=== PATIENT | male | born 1960 | race Caucasian/White ===

== ENCOUNTER 2020-11-04 09:35 | Emergency (ER) | payer MEDICARE, SELFPAY ==
[2020-11-04 09:43] VITALS: BP 151/86; PULSE 76; RESP 20; TEMP 36.9; O2SAT 99; BMI 35.7
[2020-11-04 09:50] VITALS: BP 120/97; PULSE 77; O2SAT 97
--- NOTE | 2020-11-04 09:52 | XRR_ITS ---
PROCEDURE INFORMATION: Exam: XR Right Ribs with PA Chest Exam date and time: 11/04/2020 9:52 AM Age: 60 years old Clinical indication: Other: Rib pain; Patient HX: PT fell in tub 5 days prior, swelling and discoloration in RT rib area; Additional info: Fall TECHNIQUE: Imaging protocol: XR Right ribs with PA chest. Views: 3 views COMPARISON: [facility] Chest 2 views 05/30/2018 10:22 AM FINDINGS: Lungs: Well expanded. No consolidation. Pleural spaces: Unremarkable. No pleural effusion. No pneumothorax. Heart/Mediastinum: Unremarkable. No cardiomegaly. Bones/joints: Unremarkable. No evidence of fracture. XR/XR ribs RT mn 3V w CXR1V [id number] IMPRESSION: No acute findings.
--- NOTE | 2020-11-04 10:03 | ED_ITS ---
HPI - Fall General: Chief Complaint: Fall Stated Complaint: Fall/Pain & Swelling in Rib Area Time Seen by Provider: 11/04/20 09:40 History of Present Illness: HPI Narrative: Patient complains about right sided rib pain in the lower aspect after a fall in his bathtub a couple nights ago. Pain is continued says it hurts to breathe. Denies any other problems presently MD complaint: fall Onset (ago): day(s) Fall from: standing Fall witnessed: no Place fall occurred: home Loss of consciousness: None Symptoms prior to fall: none Context: tripped/slipped Associated symptoms-after fall: Reports no associated symptoms; Denies abdominal pain, chest pain or headache(s) Review of Systems Const: Denies: fever(s), chills or body aches Eyes: Denies: change in vision or blurry vision ENMT: Denies: throat pain or nasal congestion Card: Denies: chest pain or dyspnea on exertion Resp: Denies: dyspnea, productive cough or non-productive cough GI: Denies: abdominal pain, nausea or vomiting : Denies: difficulty urinating Musc: Reports: other (Rib pain); Denies: extremity pain Skin/Breast: Denies: rash Neuro: Denies: headache(s) Psych: Denies: anxiety or depression Lui/Lymph: Denies: easy bruising Physical Exam Const: COMMON NORMALS: no acute distress, average body habitus and patient oriented x3 HENMT: COMMON NORMALS: normocephalic HEAD & SCALP: normal to inspection and normocephalic FACE & SINUS: normal facial exam Eye: COMMON NORMALS: conjunctivae normal GENERAL EYE: appearance normal, both eyes and all related structures CONJUNCTIVA: Yes conjunctivae normal Neck/C-Spine: COMMON NORMALS: no JVD Chest: CHEST: Yes localized rib tenderness with anteroposterior compression (No bruising mild swelling) Location: 9th rib, 10th rib and 11th rib Resp: COMMON NORMALS: normal respiratory effort and clear to auscultation bilaterally AUSCULTATION: clear to auscultation bilaterally Cardio: COMMON NORMALS: no JVD, regular rate and regular rhythm RATE: regular rate RHYTHM: regular rhythm GI: COMMON NORMALS: Normal to inspection, nondistended, normoactive bowel sounds present Extremity: COMMON NORMALS: normal to inspection and full ROM Neuro: COMMON NORMALS: patient oriented x3 Course Vital Signs: Vital signs: Vital Signs Temperature 98.5 F 11/04/20 09:43 Pulse Rate 74 11/04/20 11:48 Respiratory Rate 18 11/04/20 11:09 Blood Pressure 126/62 11/04/20 11:48 Pulse Oximetry 99 11/04/20 11:48 MDM - Fall MDM Narrative: Medical decision making narrative: With a fall few days ago complained about rib pain. X-rays were negative for any problems found on imaging studies. Patient's UA did show UTI with hematuria. Patient placed on appropriate antibiotics will follow primary care for repeat sample. Lab Data: Labs: Lab Results 11/04/20 Range/Units 11:01 Urine Color Straw (Yellow) Urine Appearance Cloudy (CLEAR) Urine pH 6 (5-7) Ur Specific Gravit y 1.010 (1.005-1.030) Urine Protein Neg (Negative) Urine Glucose (UA) Norm (Normal) Urine Ketones Negative (Negative) Urine Blood 2+ H (Negative) Urine Nitrate Positive H (Negative) Urine Bilirubin Neg (Negative) Urine Urobilinogen Norm (Negative) mg/dL Ur Leukocyte Marisa ase 2+ H (Negative) Urine RBC 5-10 H (0-2) /hpf Urine WBC 40-55 H (0-5) /hpf Ur Squamous Epith Cells Rare (0-5) /hpf Amorphous Sediment Not Reportable Urine Bacteria 2+ H (NONE) /hpf Discharge Plan Discharge Patient Disposition: Home Clinical Impression: Acute UTI Contusion of rib on right side Qualifiers: Encounter type: initial encounter Qualified Code(s): S20.211A - Contusion of right front wall of thorax, initial encounter Condition: Stable Prescriptions: New tramadol 50 mg tablet 50 mg PO TID PRN (Reason: pain) Qty: 7 RF: 0 cephalexin 500 mg capsule 500 mg PO Q8H 7 Days Qty: 21 RF: 0 Discharge Orders: Discharge ED (Routine); Ordered 11/04/20 Ordered By: Paresh Armstrong Discharge Diet: Usual diet Discharge Activity: Increase activity as tolerated Patient Instructions: Urinary Tract Infection in Men (ED), Opioid Safety Activity Restrictions/Additional Instructions: Follow-up with medical provider as directed. Take medications as prescribed. Return to the ER or your medical provider if condition worsens. Please read and understand discharge instructions. If any questions ask please. Follow-up your primary care provider in 1 week and repeat urine sample to make sure that infection is cleared up. Coding Level of Care Code ED Apparel Embroidery Digitizer for Chg Fwd Exam Comprehensive
[2020-11-04] MEDS: ketorolac 60 mg/2 mL INJ IM (10:24)
[2020-11-04] MEDS: HYDROcodone-acetaminophen 7.5-325 mg Tablet 1 TAB PO (10:24)
[2020-11-04 11:09] VITALS: BP 130/76; PULSE 67; RESP 18; O2SAT 98
[2020-11-04 11:15] LABS: Add Urine Microscopic? YES; Bilirubin Urine Neg (Negative); Blood Urine 2+ (Negative); Glucose Urine UA Norm (Normal); Ketones Urine Negative (Negative); Leukocyte Esterase Urine 2+ (Negative); Nitrate Urine Positive (Negative); Protein Urine Neg (Negative); Urine Appearance Cloudy (CLEAR); Urine Color Straw (Yellow); Urobilinogen Urine Norm (Negative); pH Urine 6 (5-7)
[2020-11-04 11:17] LABS: WBC Urine 40-55 /hpf (0-5)
[2020-11-04 11:18] LABS: Add Urine Culture? Yes; Bacteria Urine 2+ /hpf; Squamous Epithelial Cell Urine RARE /hpf (0-5)
[2020-11-04] MEDS: cephALEXin 500 mg Capsule PO (11:41)
[2020-11-04 11:48] VITALS: BP 126/62; PULSE 74; O2SAT 99
== END 2020-11-04 11:50 | disposition home or self-care (01) ==
PROVIDERS: Emergency Provider Nurse Practitioner Family
DX: N39.0 Urinary tract infection, site not specified (principal); S20.211A Contusion of right front wall of thorax, initial encounter; W18.2XXA Fall in (into) shower or empty bathtub, initial encounter
CPT/HCPCS: 71101; 81001; 87077; 87086; 87186; 96372; 99283; J1885

== ENCOUNTER → 2021-02-19 13:21 | Outpatient (BNVA) | payer MEDICARE, SELFPAY | PROVIDERS: Visit Provider Psychiatry & Neurology Psychiatry | DX: F33.2 Major depressive disorder, recurrent severe without psychotic features (principal); F41.1 Generalized anxiety disorder; F43.12 Post-traumatic stress disorder, chronic | CPT/HCPCS: 99204 ==

== ENCOUNTER → 2021-02-25 13:02 | Outpatient (BNVA) | payer MEDICARE, SELFPAY | PROVIDERS: PCP Family Medicine; Referring Provider Family Medicine; Visit Provider Specialist | DX: G62.89 Other specified polyneuropathies (principal); G56.03 Carpal tunnel syndrome, bilateral upper limbs | CPT/HCPCS: 95913 ==

== ENCOUNTER → 2021-06-16 12:25 | Outpatient (BNVA) | payer MEDICARE, SELFPAY | PROVIDERS: PCP Family Medicine; Visit Provider Psychiatry & Neurology Psychiatry | DX: F43.12 Post-traumatic stress disorder, chronic (principal); F41.1 Generalized anxiety disorder; F33.2 Major depressive disorder, recurrent severe without psychotic features | CPT/HCPCS: 99213 ==

== ENCOUNTER → 2021-09-12 12:15 | Outpatient (BNVA) | payer MEDICARE, SELFPAY | PROVIDERS: PCP Family Medicine; Visit Provider Psychiatry & Neurology Psychiatry | DX: F43.12 Post-traumatic stress disorder, chronic (principal); F41.1 Generalized anxiety disorder; F33.2 Major depressive disorder, recurrent severe without psychotic features | CPT/HCPCS: 99213 ==

== ENCOUNTER 2021-11-04 14:10 | Inpatient (IN) | payer MEDICARE, SELFPAY ==
[2021-11-04 14:22] VITALS: BP 117/66; PULSE 55; RESP 20; TEMP 36.8; O2SAT 99; BMI 34.2
--- NOTE | 2021-11-04 15:47 | ED_ITS ---
HPI - Abdominal Pain General: Chief Complaint: Abdominal Pain Stated Complaint: lower abd pain Time Seen by Provider: 11/04/21 15:28 Source: patient Mode of arrival: ambulatory Limitations: no limitations History of Present Illness: 61-year-old male presents to the emergency room with left testicular and lower abdominal pain. It began 4 to 5 days ago has progressively worsened. He has not had any dysuria urgency or frequency or hematuria denies any diarrhea or hematochezia no fever sweats or chills. Denies any flank pain. MD elicited complaint: abdominal pain Onset (ago): day(s) Location: Suprapubic Severity: moderate Quality: aching Radiation: other (L testicle) Exacerbating factors: nothing Relieving factors: nothing Associated Symptoms: Denies anorexia, belching, bloating, change in bowel habits, change in stool character, chills, coffee ground emesis, constipation, GI cramping, diarrhea, dyspepsia, dysuria, excessive flatus, fever(s), heartburn, hematochezia, hematuria, hematemesis, fecal incontinence, loose stools, melena, nausea, poor appetite, syncope and vomiting Review of Systems Const: Denies: fever(s) or chills ENMT: Denies: throat pain, ear or mastoid pain, nasal discharge or nasal congestion Card: Denies: chest pain or syncope Resp: Denies: dyspnea, productive cough or non-productive cough GI: Reports: abdominal pain; Denies: nausea, vomiting, hematemesis, coffee ground emesis, heartburn, diarrhea, constipation, bloating, GI cramping, belching, excessive flatus, fecal incontinence, change in bowel habits, change in stool character, hematochezia or melena : Reports: testicular pain; Denies: flank pain, difficulty urinating, dysuria, urinary frequency or hematuria Skin/Breast: Denies: rash or pruritus PFSH ED PFSH: Medical History Diabetes Hypertension Major depressive disorder, recurrent, in partial remission Psychiatric care Surgical History History of ear, nose, and throat (ENT) surgery Mucocele Family History Other Cancer Social History Smoking and tobacco status: never smoked Second hand smoke exposure: No Physical Exam Const: COMMON NORMALS: no acute distress GENERAL APPEARANCE: cooperative and comfortable ORIENTATION/CONSCIOUSNESS: Yes awake, Yes oriented to person, Yes oriented to place and Yes oriented to time HENMT: COMMON NORMALS: normocephalic, atraumatic, hearing grossly normal bilaterally, external ears normal, EAC's normal, TM's normal bilaterally, Normal nasal mucous membranes and turbinates present, moist oral mucous membranes and oropharynx normal HEAD & SCALP: normocephalic and atraumatic NOSE: Normal nasal mucous membranes and turbinates present EXTERNAL EAR: Yes external ears normal EXTERNAL AUDITORY CANAL: EAC's normal TYMPANIC MEMBRANE: TM's normal bilaterally Resp: COMMON NORMALS: normal respiratory effort, No retractions, No use of accessory muscles and clear to auscultation bilaterally AUSCULTATION: clear to auscultation bilaterally Cardio: COMMON NORMALS: regular rate, regular rhythm and No murmurs present (Cardio) RATE: regular rate RHYTHM: regular rhythm GI: COMMON NORMALS: Soft to palpation and No hepatosplenomegaly present AUSCULTATION: Yes normoactive bowel sounds PALPATION: Yes Soft to palpation, No Tenderness to palpation present (GI), No Guarding due to palpation present (GI) and Yes No hepatosplenomegaly present : OTHER: Left testicular pain no masses no evidence of hernia in the inguinal canal Extremity: COMMON NORMALS: normal to inspection, capillary refill normal, no clubbing, cyanosis or edema, no calf tenderness and no pedal edema Neuro: SENSORIUM/ORIENTATION: Yes oriented to person, Yes oriented to place and Yes oriented to time Skin: COMMON NORMALS: no rashes or lesions noted GENERAL SKIN EXAM: no rashes or lesions noted Course Vital Signs: Vital signs: Vital Signs Temperature 98.6 F 11/06/21 15:27 Pulse Rate 94 11/06/21 15:27 Respiratory Rate 16 11/06/21 15:27 Blood Pressure 126/81 11/06/21 15:27 Pulse Oximetry 97 11/06/21 15:27 MDM - Abdominal Pain Medical Decision Making Labs and imaging reviewed discussed with patient he has a staghorn calculus with evidence of pyelonephritis will admit for IV antibiotics consult urology orders are written. Medical Records I reviewed the patient's medical records. Lab Data I reviewed the patient's lab results. : 11/06/21 05:59 11/06/21 05:59 Labs/Radiology: Radiology Impressions Scrotum Ultrasound 11/04/21 16:00 IMPRESSION: No acute findings. Abdomen/Pelvis CT 11/04/21 16:01 IMPRESSION: 1. Staghorn calculus nearly completely filling the left renal collecting system. No hydronephrosis or ureteral dilation. Peripelvic edema and urothelial thickening may represent pyelitis or early xanthogranulomatous pyelonephritis. 2. Incidental findings above. Laboratory Results WBC 10.3 10^3/uL (4.0-10.0) H 11/04/21 15:45 RBC 4.43 10^6/uL (4.1-5.3) 11/04/21 15:45 Hgb 13.6 g/dL (11.7-16.6) 11/04/21 15:45 Hct 41.5 % (42.0-52.0) L 11/04/21 15:45 MCV 93.7 fl (80-94) 11/04/21 15:45 MCH 30.7 pg (28.0-34.0) 11/04/21 15:45 MCHC 32.8 g/dL (30.0-36.0) 11/04/21 15:45 RDW 18.9 % (12.1-15.1) H 11/04/21 15:45 Plt Count 276 10^3/cmm (130-400) 11/04/21 15:45 MPV 9.5 fL (7.4-10.4) 11/04/21 15:45 Neut % (Auto) 47.6 % 11/04/21 15:45 Lymph % (Auto) 42.6 % 11/04/21 15:45 [place] % (Auto) 6.2 % 11/04/21 15:45 Eos % (Auto) 2.4 % 11/04/21 15:45 Baso % (Auto) 0.8 % 11/04/21 15:45 Neut # (Auto) 4.88 10^3/uL (1.8-7.7) 11/04/21 15:45 Lymph # (Auto) 4.4 10^3/uL (0.8-4.8) 11/04/21 15:45 [place] # (Auto) 0.6 10^3/uL (0.2-0.9) 11/04/21 15:45 Eos # (Auto) 0.3 10^3/uL (0.0-0.8) 11/04/21 15:45 Baso # (Auto) 0.1 10^3/uL (0.0-0.1) 11/04/21 15:45 Nucleated RBC % (auto) 0 % 11/04/21 15:45 Nucleated RBCs # 0.0 /100WBC 11/04/21 15:45 Sodium 139 mmol/L (136-145) 11/04/21 16:40 Potassium 4.1 mmol/L (3.5-5.1) 11/04/21 16:40 Chloride 105 mmol/L (98-107) 11/04/21 16:40 Carbon Dioxide 21 mmol/L (22-29) L 11/04/21 16:40 Anion Gap 17.1 (5-19) 11/04/21 16:40 BUN 20 mg/dL (8-23) 11/04/21 16:40 Creatinine 1.1 mg/dL (0.7-1.2) 11/04/21 16:40 GFR Calculation 68.3 mL/min (90-130) L 11/04/21 16:40 Glucose 132 mg/dL (65-115) H 11/04/21 16:40 Estimat Average Glucose 154 11/04/21 15:45 Hemoglobin A1c 7.0 % (4.0-6.0) H 11/04/21 15:45 Calculated Osmolality 292 mOsm/kg (285-295) 11/04/21 16:40 Calcium 8.5 mg/dL (8.5-10.5) 11/04/21 16:40 Total Bilirubin 0.2 mg/dL (0.15-1.2) 11/04/21 16:40 AST 15 U/L (0-40) 11/04/21 16:40 ALT 16 U/L (0-41) 11/04/21 16:40 Alkaline Phosphatase 72 IU/L (40-130) 11/04/21 16:40 Total Protein 6.8 g/dL (6.6-8.7) 11/04/21 16:40 Albumin 4.0 g/dL (3.5-5.2) 11/04/21 16:40 Globulin 2.8 g/dL (1.3-4.6) 11/04/21 16:40 Lipase 38 U/L (13-60) 11/04/21 16:40 Prostate Specific Ag 0.567 ng/mL (0-4) 11/04/21 16:40 Procalcitonin 0.11 ng/mL (0-0.5) 11/04/21 16:40 Urine Color Yellow (Yellow) 11/04/21 15:45 Urine Appearance Hazy (CLEAR) A 11/04/21 15:45 Urine pH 6 (5-7) 11/04/21 15:45 Ur Specific [place] 1.010 (1.005-1.030) 11/04/21 15:45 Urine Protein Neg (Negative) 11/04/21 15:45 Urine Glucose (UA) 4+ (Normal) H 11/04/21 15:45 Urine Ketones Negative (Negative) 11/04/21 15:45 Urine Blood 3+ (Negative) H 11/04/21 15:45 Urine Nitrate Negative (Negative) 11/04/21 15:45 Urine Bilirubin Neg (Negative) 11/04/21 15:45 Urine Urobilinogen Norm mg/dL (Negative) 11/04/21 15:45 Ur Leukocyte Esterase 2+ (Negative) H 11/04/21 15:45 Urine RBC 10-15 /hpf (0-2) H 11/04/21 15:45 Urine WBC >100 /hpf (0-5) H 11/04/21 15:45 Ur Squamous Epith Cells 0-4 /hpf (0-5) H 11/04/21 15:45 Amorphous Sediment Not Reportable 11/04/21 15:45 Urine Bacteria 1+ /hpf (NONE) H 11/04/21 15:45 Discharge Plan Discharge Patient Disposition: Admitted As Inpatient Admit Provider: Gayle Reyes Clinical Impression: Pyelonephritis, Staghorn calculus, Generalized anxiety disorder Condition: Stable Coding Level of Care Code ED Traveling Auditor for Chg Fwd Exam Detailed
[2021-11-04 15:53] LABS: Basophils # 0.1 10^3/uL (0.0-0.1); Basophils % 0.8 %; Eosinophils # 0.3 10^3/uL (0.0-0.8); Eosinophils % 2.4 %; Hematocrit 41.5 % (42.0-52.0); Hemoglobin 13.6 g/dL (11.7-16.6); Lymphocytes # 4.4 10^3/uL (0.8-4.8); Lymphocytes % 42.6 %; Mean Corpuscular HGB Conc 32.8 g/dL (30.0-36.0); Mean Corpuscular Hemoglobin 30.7 pg (28.0-34.0); Mean Corpuscular Volume 93.7 fl (80-94); Mean Platelet Volume 9.5 fL (7.4-10.4); Monocytes # 0.6 10^3/uL (0.2-0.9); Monocytes % 6.2 %; Neutrophils # 4.88 10^3/uL (1.8-7.7); Neutrophils % 47.6 %; Nucleated Red Blood Cells % 0 %; Platelet Count 276 10^3/cmm (130-400); Red Blood Count 4.43 10^6/uL (4.1-5.3); Red Cell Distribution Width 18.9 % (12.1-15.1); White Blood Count 10.3 10^3/uL (4.0-10.0)
--- NOTE | 2021-11-04 16:00 | USR_ITS ---
PROCEDURE INFORMATION: Exam: US Scrotum and Artery or Vein of the Abdominal and/or Reproductive Organs, Limited Scrotum Exam date and time: 11/04/2021 4:20 PM Age: 61 years old Clinical indication: Groin pain and scrotum pain; Additional info: L testicle pain TECHNIQUE: Imaging protocol: Real-time ultrasound of the scrotum. Real-time duplex ultrasound scan of the arterial or venous flow with chamberlain scale, color Doppler flow and spectral waveform analysis with image documentation. Limited Duplex exam focused of the scrotum. Duplex images required to evaluate for torsion and other vascular conditions. COMPARISON: No relevant prior studies available. FINDINGS: Right testicle: Right testicular contour and parenchymal echotexture is normal. There is no mass. There is normal blood flow in the right testicle. The right testicle measures 4.3 x 2.6 x 2.4 cm. Left testicle: Left testicular contour and parenchymal echotexture is normal. There is no mass. There is normal blood flow in the left testicle. The left testicle measures 3.9 x 2.5 x 2.3 cm. Epididymides: Normal right epididymis. Left epididymis contains a 4 mm simple cyst. No sign of inflammation. Scrotum: Trace right hydrocele US/US scrotum [id number] IMPRESSION: No acute findings.
--- NOTE | 2021-11-04 16:01 | CTR_ITS ---
PROCEDURE INFORMATION: Exam: CT Abdomen And Pelvis Without Contrast Exam date and time: 11/04/2021 4:56 PM Age: 61 years old Clinical indication: Other: Left scrotal pain and flank pain; Additional info: Abdominal pain TECHNIQUE: Imaging protocol: Computed tomography of the abdomen and pelvis without contrast. Radiation optimization: All CT scans at this facility use at least one of these dose optimization techniques: automated exposure control; mA and/or kV adjustment per patient size (includes targeted exams where dose is matched to clinical indication); or iterative reconstruction. COMPARISON: US scrotum [id number] 11/04/2021 4:20 PM RADIATION DOSE METRICS: Total DLP (mGy-cm): 1501.63 FINDINGS: Lungs: Lung bases are clear. Liver: Simple liver cysts are present. There is diffuse low-attenuation of the liver relative to the spleen consistent with fatty infiltration. Gallbladder and bile ducts: The gallbladder is decompressed, preventing meaningful evaluation of wall thickness. Pancreas: The pancreas is unremarkable. Spleen: The spleen is unremarkable. Adrenal glands: The adrenal glands are unremarkable. Kidneys and ureters: Staghorn calculus in the left kidney measuring 5.2 x 2.9 x 1.9 cm. The stone fills the calices and renal pelvis. There is infiltration of the fat adjacent to the renal pelvis. There is thickening of distal renal pelvic urothelium. The ureter is nondilated. There is subtle asymmetric left perinephric edema. The right kidney and ureter are unremarkable. Stomach and bowel: The stomach is unremarkable. The small bowel is nondilated. The colon is unremarkable. Appendix: The appendix is normal. Intraperitoneal space: There is no free air or significant intraperitoneal free fluid. Vasculature: There is moderate aortic atherosclerotic disease. Lymph nodes: There is no lymphadenopathy in the retroperitoneum, mesentery, pelvis or inguinal regions. Urinary bladder: The urinary bladder is unremarkable. Reproductive: The prostate and seminal vesicles are unremarkable. Bones/joints: There is mild degenerative disease in the lumbar spine. The pelvis and hips are unremarkable. Soft tissues: There is a small fat containing umbilical hernia. CT/CT abdomen pelvis wo con [id number] IMPRESSION: 1. Staghorn calculus nearly completely filling the left renal collecting system. No hydronephrosis or ureteral dilation. Peripelvic edema and urothelial thickening may represent pyelitis or early xanthogranulomatous pyelonephritis. 2. Incidental findings above.
[2021-11-04 16:05] LABS: Blood Urine 3+ (Negative); Glucose Urine UA 4+ (Normal); Ketones Urine Negative (Negative); Protein Urine Neg (Negative); Urine Appearance Hazy (CLEAR); Urine Color Yellow (Yellow); pH Urine 6 (5-7)
[2021-11-04 16:06] LABS: Add Urine Culture? Yes; Add Urine Microscopic? YES; Bacteria Urine 1+ /hpf; Bilirubin Urine Neg (Negative); Leukocyte Esterase Urine 2+ (Negative); Nitrate Urine Negative (Negative); Squamous Epithelial Cell Urine 0-4 /hpf (0-5); Urobilinogen Urine Norm (Negative); WBC Urine >100 /hpf (0-5)
[2021-11-04] MEDS: cefTRIAXone 1,000 MG in sodium chloride 0.9% (plus) 50 ML 100 MG IV (16:41)
[2021-11-04 17:18] VITALS: BP 127/64; PULSE 74; RESP 18; O2SAT 98
[2021-11-04 17:24] LABS: Alanine Aminotransferase 16 U/L (0-41); Alkaline Phosphatase 72 IU/L (40-130); Aspartate Amino Transferase 15 U/L (0-40); Blood Urea Nitrogen 20 mg/dL (8-23); Calcium 8.5 mg/dL (8.5-10.5); Carbon Dioxide 21 mmol/L (22-29); Chloride 105 mmol/L (98-107); Globulin 2.8 g/dL (1.3-4.6); Glomerular Filtration Rate 68.3 mL/min (90-130); Glucose 132 mg/dL (65-115); Lipase 38 U/L (13-60); Osmolality Calculated 292 mOsm/kg (285-295); Sodium 139 mmol/L (136-145); Total Bilirubin 0.2 mg/dL (0.15-1.2); Total Protein 6.8 g/dL (6.6-8.7)
[2021-11-04 17:25] LABS: Anion Gap 17.1 (5-19); Potassium 4.1 mmol/L (3.5-5.1)
--- NOTE | 2021-11-04 18:13 | PM.HP ---
Providers/Chief Complaint Primary Care Provider: Luican Ng MD Chief Complaint: lower abd pain History of Present Illness Catracho Dawson is a 61 year old male who carries history of diabetes and hypertension who presented today with chief complaint of scrotal pain. Patient is stating that around COVID pandemic he was experiencing similar complaint which she is describing as abdominal discomfort, he stating that he toughed it out did not seek medical help however 4 days ago he started experiencing left scrotal pain and today it got worse he decided to come to the hospital for further evaluation, he has not noticed any chest pain, shortness of breath, fever, nausea or vomiting. He has not noticed any changes in his urinary stream. 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 In the ER he has been diagnosed with pyelonephritis, staghorn calculi without hydronephrosis, he is not septic at this point, he is n.p.o., Dr. Fierro is coming to see him, he will be kept n.p.o. until urology evaluation Afebrile He has been given antibiotics, mild leukocytosis Creatinine is normal Patient is stating that he is up-to-date with his colonoscopies, they were unremarkable, he does endorse that his PSA level was within normal range however he has been noticing nocturia, he does wake up 2-3 times at night Review of Systems Const: Denies: fever(s) or chills Eyes: Denies: change in vision ENMT: Denies: throat pain Card: Denies: chest pain Resp: Denies: dyspnea GI: Reports: abdominal pain and nausea : Denies: flank pain Musc: Denies: neck pain Skin/Breast: Denies: rash Neuro: Denies: headache(s) Psych: Denies: anxiety Endo: Denies: polyuria Lui/Lymph: Denies: easy bruising All/Imm: Denies: urticaria Medications/Allergies Home Medications Medication Instructions Recorded Confirmed Last Taken Type levothyroxine 50 mcg capsule 50 mcg PO DAILY 01/23/21 09/12/21 Unknown History lisinopril 30 mg tablet 30 mg PO DAILY 01/23/21 09/12/21 Unknown History rosuvastatin 5 mg tablet 5 mg PO DAILY 01/23/21 09/12/21 Unknown History metformin 500 mg tablet 500 mg PO BID tab 02/19/21 09/12/21 Unknown History empagliflozin 25 mg tablet 25 mg PO DAILY 06/16/21 09/12/21 Unknown History (Jardiance) buspirone 5 mg tablet 5 mg PO TID #90 tab 09/12/21 09/12/21 Unknown Rx venlafaxine 150 mg tablet,extended 150 mg PO DAILY #30 tab 09/12/21 09/12/21 Unknown Rx release 24 hr venlafaxine 75 mg capsule,extended 75 mg PO DAILY #30 cap 09/12/21 09/12/21 Unknown Rx release 24 hr (Effexor XR) Allergies Allergy/AdvReac Type Severity Reaction Status Date / Time shellfish derived Allergy ALGY-Anaphy Verified 09/12/21 12:26 laxis PFSH Acute PFSH: Medical History Diabetes Hypertension Major depressive disorder, recurrent, in partial remission Psychiatric care Surgical History History of ear, nose, and throat (ENT) surgery Mucocele Family History Other Cancer Social History Smoking and tobacco status: never smoked Second hand smoke exposure: No Vitals/I&O/Wt Last Vital Signs Temp 98.2 F 11/04/21 14:22 Pulse 74 11/04/21 17:18 Resp 18 11/04/21 17:18 BP 127/64 11/04/21 17:18 Pulse Ox 98 11/04/21 17:18 11/04/21 11/04/21 11/04/21 06:59 14:59 22:59 Intake Total 50 / 50 Balance 50 / 50 Weight last 48 hrs Weight 102.058 kg Physical Exam Narrative: Pleasant cooperative male Currently not in any active distress Currently on room air Saturating well Abdomen soft No CVA tenderness No signs of edema Looks euvolemic Nonfocal neuro exam Awake and alert Pleasant and cooperative Data : 11/04/21 15:45 11/04/21 16:40 A&P Assessment and plan (1) Staghorn calculus: Status: Acute (2) Pyelonephritis: Status: Acute Plan Staghorn calculi, pyelonephritis No signs of sepsis Afebrile Mild leukocytosis N.p.o. after Dr. Fierro's evaluation Start Zosyn IV fluid hydration Check A1c level Scrotal ultrasound unremarkable No signs of Angel's gangrene Hypothyroidism: Patient takes levothyroxine 50 mcg at home For his hypertension he takes lisinopril which I am holding for now Hold metformin Full code N.p.o. until Dr. Fierro's evaluation DVT prophylaxis: SCDs in anticipation of urological intervention Attestations Medical Necessity Statement*: More than 2 midnights anticipated Time Spent in Patient Care: 40 Coding Level of Care Code Acute Soft Sugar Operator Head for Chg Fwd Diagnoses Staghorn calculus N20.0 Pyelonephritis N12
[2021-11-04 18:24] VITALS: BP 111/64; PULSE 80; RESP 18; O2SAT 100
[2021-11-04 18:50] VITALS: RESP 18; O2SAT 96
[2021-11-04] MEDS: HYDROmorphone 1 mg/mL INJ 1 mL 0.4 MG IVP ×2 (18:50→22:31)
[2021-11-04 19:58] LABS: Procalcitonin 0.11 ng/mL (0-0.5); Prostate Specific Antigen 0.567 ng/mL (0-4)
[2021-11-04 19:59] VITALS: BP 116/56; PULSE 79; RESP 17; O2SAT 99
[2021-11-04 20:56] LABS: Estmated Average Glucose 154
[2021-11-04] MEDS: piperacillin-tazobactam 3.375 GM in sodium chloride 0.9% (plus) 50 ML IV (21:15)
[2021-11-04] MEDS: dextrose 5%-sod chloride 0.9% 1,000 ML 30 ML IV (22:22)
[2021-11-04 22:31] VITALS: RESP 14
[2021-11-05] VITALS (10 sets, daily range): BP systolic 120–148; BP diastolic 68–80; PULSE 62–82; RESP 14–18; TEMP 36.1–36.9; O2SAT 95–99
[2021-11-05] MEDS: piperacillin-tazobactam 3.375 GM in sodium chloride 0.9% (plus) 50 ML IV ×3 (03:24→21:30)
[2021-11-05 05:55] LABS: Basophils # 0.1 10^3/uL (0.0-0.1); Basophils % 0.9 %; Eosinophils # 0.3 10^3/uL (0.0-0.8); Eosinophils % 2.6 %; Hematocrit 40.2 % (42.0-52.0); Hemoglobin 13.3 g/dL (11.7-16.6); Lymphocytes # 3.4 10^3/uL (0.8-4.8); Mean Corpuscular HGB Conc 33.1 g/dL (30.0-36.0); Mean Corpuscular Hemoglobin 30.2 pg (28.0-34.0); Mean Corpuscular Volume 91.2 fl (80-94); Mean Platelet Volume 8.9 fL (7.4-10.4); Monocytes # 0.7 10^3/uL (0.2-0.9); Monocytes % 7.6 %; Neutrophils # 5.16 10^3/uL (1.8-7.7); Neutrophils % 53.4 %; Nucleated Red Blood Cells % 0 %; Platelet Count 270 10^3/cmm (130-400); Red Blood Count 4.41 10^6/uL (4.1-5.3); Red Cell Distribution Width 15.2 % (12.1-15.1); White Blood Count 9.7 10^3/uL (4.0-10.0)
[2021-11-05 06:16] LABS: Alanine Aminotransferase 16 U/L (0-41); Alkaline Phosphatase 74 IU/L (40-130); Anion Gap 15.2 (5-19); Aspartate Amino Transferase 14 U/L (0-40); Blood Urea Nitrogen 18 mg/dL (8-23); C Reactive Protein 12.4 mg/L (0.0-4.9); Carbon Dioxide 23 mmol/L (22-29); Chloride 104 mmol/L (98-107); Globulin 3.2 g/dL (1.3-4.6); Glomerular Filtration Rate 61.8 mL/min (90-130); Glucose 149 mg/dL (65-115); Osmolality Calculated 291 mOsm/kg (285-295); Potassium 4.2 mmol/L (3.5-5.1); Sodium 138 mmol/L (136-145); Total Bilirubin 0.3 mg/dL (0.15-1.2); Total Protein 7.2 g/dL (6.6-8.7)
[2021-11-05 07:14] LABS: Glucose Point of Care 123 mg/dL (70-110)
[2021-11-05] MEDS: levothyroxine 50 mcg Tablet PO (08:20)
[2021-11-05] MEDS: sennosides-docusate Tablet 1 TAB PO (08:20)
--- NOTE | 2021-11-05 08:22 | P.PN_ITS ---
Subjective Subjective: Seen this morning. No acute events overnight. Urine culture sensitivity still pending. Vitals/I&O/Wt Last Vital Signs Temp 98.1 F 11/05/21 16:00 Pulse 74 11/05/21 16:00 Resp 17 11/05/21 16:00 BP 142/77 11/05/21 16:00 Pulse Ox 97 11/05/21 16:00 11/05/21 11/05/21 11/05/21 06:59 14:59 22:59 Intake Total 50 / 220 830 / 830 240 / 1070 Output Total 350 / 350 860 / 860 Balance -300 / -130 -30 / -30 240 / 210 Weight last 48 hrs Weight 102.058 kg Physical Exam Narrative: General: Alert oriented x3, patient seen sitting up in bed appearing comfortable at this time. HEENT: Normocephalic, atraumatic, EOMI, breathing normally Cardio: Regular rate rhythm, normal S1-S2, no murmurs Respiratory: Good bilateral air entry, no wheezes no rhonchi appreciated GI: Abdomen soft, nontender, nondistended, bowel sounds + : Tenderness to palpation at left flank area Behavior: Appropriate and cooperative Extremities: No lower extremity edema, no cyanosis Data : 11/05/21 05:28 11/05/21 05:28 A&P Assessment and plan (1) Major depressive disorder, recurrent severe without psychotic features: Status: Acute (2) Generalized anxiety disorder: Status: Acute (3) Post-traumatic stress disorder, chronic: Status: Acute (4) Peripheral neuropathy: Status: Acute (5) Bilateral carpal tunnel syndrome: Status: Acute (6) Major depressive disorder, recurrent, in partial remission: Status: Acute (7) Staghorn calculus: Status: Acute (8) Pyelonephritis: Status: Acute Plan #Pyelonephritis #Staghorn calculi #Hypothyroidism #Diabetes mellitus #Depression/anxiety #Hyperlipidemia #Hypertension ? Afebrile overnight. Urine culture sensitivity pending ? Continue on Zosyn till sensitivities back. ? Continue all other home medications at this time. Hold metformin, Jardiance. ? We will need to follow-up with urology outpatient after discharge for further work-up and management of his staghorn calculi ? Continue IV antibiotics. We will probably place PICC line and treat for 2 weeks depending on culture sensitivity. ? We will discuss with Dr. Fierro Full code DVT prophylaxis: Heparin subcu Attestations Medical Necessity Statement*: Expect 24 to 48-hour stay for urine culture sensitivity and management of pyelonephritis at this time. Coding Level of Care Code Acute [employer] for Chg Fwd Diagnoses Major depressive disorder, recurrent severe without psychotic features F33.2 Generalized anxiety disorder F41.1 Post-traumatic stress disorder, chronic F43.12 Peripheral neuropathy G62.9 Bilateral carpal tunnel syndrome G56.03 Major depressive disorder, recurrent, in partial remission F33.41 Staghorn calculus N20.0 Pyelonephritis N12
[2021-11-05 09:27] LABS: Glucose Point of Care 131 mg/dL (70-110)
[2021-11-05 12:34] LABS: Glucose Point of Care 95 mg/dL (70-110)
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
[2021-11-05 17:31] LABS: Glucose Point of Care 120 mg/dL (70-110)
[2021-11-05 21:29] LABS: Glucose Point of Care 159 mg/dL (70-110)
[2021-11-05] MEDS: dextrose 5%-sod chloride 0.9% 1,000 ML 30 ML IV (21:30)
[2021-11-05] MEDS: BuSPIRONE 10 mg Tablet 5 MG PO (21:34)
[2021-11-05] MEDS: HYDROmorphone 1 mg/mL INJ 1 mL 0.4 MG IVP (23:09)
[2021-11-06] VITALS: BP 117/72; PULSE 64; RESP 17; O2SAT 98
[2021-11-06 04:00] VITALS: BP 104/64; PULSE 72; RESP 18; TEMP 36.8; O2SAT 98
[2021-11-06] MEDS: piperacillin-tazobactam 3.375 GM in sodium chloride 0.9% (plus) 50 ML IV ×2 (04:22→11:51)
[2021-11-06] MEDS: atorvastatin 40 mg Tablet 20 MG PO (06:18)
[2021-11-06] MEDS: lisinopril 20 mg Tablet 30 MG PO (06:18)
[2021-11-06] MEDS: acetaminophen 500 mg Tablet PO ×2 (06:23→11:51)
[2021-11-06 06:29] LABS: Glucose Point of Care 129 mg/dL (70-110)
[2021-11-06 06:48] LABS: Basophils # 0.1 10^3/uL (0.0-0.1); Basophils % 1.2 %; Eosinophils # 0.2 10^3/uL (0.0-0.8); Eosinophils % 3.4 %; Hemoglobin 13.8 g/dL (11.7-16.6); Lymphocytes # 1.3 10^3/uL (0.8-4.8); Lymphocytes % 21.5 %; Mean Corpuscular HGB Conc 32.9 g/dL (30.0-36.0); Mean Corpuscular Hemoglobin 30.1 pg (28.0-34.0); Mean Corpuscular Volume 91.7 fl (80-94); Mean Platelet Volume 9.2 fL (7.4-10.4); Monocytes # 0.4 10^3/uL (0.2-0.9); Monocytes % 6.8 %; Neutrophils # 3.89 10^3/uL (1.8-7.7); Neutrophils % 66.4 %; Nucleated Red Blood Cells % 0 %; Platelet Count 275 10^3/cmm (130-400); Red Blood Count 4.58 10^6/uL (4.1-5.3); White Blood Count 5.9 10^3/uL (4.0-10.0)
[2021-11-06 06:56] LABS: Anion Gap 16.2 (5-19); Blood Urea Nitrogen 16 mg/dL (8-23); Calcium 9.1 mg/dL (8.5-10.5); Carbon Dioxide 26 mmol/L (22-29); Chloride 100 mmol/L (98-107); Glomerular Filtration Rate 61.8 mL/min (90-130); Glucose 135 mg/dL (65-115); Osmolality Calculated 289 mOsm/kg (285-295); Potassium 4.2 mmol/L (3.5-5.1); Sodium 138 mmol/L (136-145)
[2021-11-06 07:45] VITALS: PULSE 104; RESP 16; O2SAT 99
[2021-11-06] MEDS: levothyroxine 50 mcg Tablet PO (08:42)
[2021-11-06] MEDS: venlafaxine ER (24HR) 75 mg Capsule PO (08:42)
[2021-11-06] MEDS: BuSPIRONE 10 mg Tablet 5 MG PO ×3 (08:42→20:58)
[2021-11-06] MEDS: sennosides-docusate Tablet 1 TAB PO (08:42)
[2021-11-06] MEDS: venlafaxine ER (24HR) 150 mg Capsule PO (08:42)
--- NOTE | 2021-11-06 11:15 | PC.CHAP ---
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 [] Patient/Family/Request visit [] Outpatient visit [] Follow-up visit [] Physician referral [] Code/Alert [x] Routine visit [] Staff referral [] Actively dying [] Patient sleeping [] Family support [] [] Out of room [] Palliative care [] [x] Receiving care in room [] Pre-surgical visit [] Trauma [] Long length of stay [] ICU visit [] Other: Relational/Emotional Strength [x] Patient feels connected with others/family/visitors/staff [] Distress [] Loneliness/isolation [] Abandonment Spirituality of Patient [x] Person of Penelope [] Attends Yarsanism of their Penelope [x] Believes in Prayer [] Reads Bible or Jew materials [] There are Spiritual issues to be addressed Pig Machine Operator Interventions [x] Prayer [x] Active listening [x] Non-anxious presence [x] Spiritual/emotional support [] Crisis/trauma care [x] Spiritual counseling [] Bereavement support [] Provided bereavement packet [] Provided Bible/devotional materials [] Provided toy/stuffed animal, coloring book to patient or family member [] Provided Communion [] Anointing/Badin [] Salvation [x] Completed spiritual assessment [] Other: Impact on Illness or Injury [] Angry [] Fearful [] Anxious [] Often cries [] Exhaustion [] Unable to work [] Unable to attend yazidism [] Unable to walk/stand [] Unable to read [] Unable to drive [] Unable to eat/drink [] Unable to sleep [] Unable to be with family [] Patient intubated [] Other: Summary feeling better not [place] about his health at this time well be going home Time spent with patient 10 mins
[2021-11-06 11:56] LABS: Glucose Point of Care 101 mg/dL (70-110)
[2021-11-06 11:57] VITALS: BP 136/74; PULSE 94; RESP 16; TEMP 36.8; O2SAT 96
--- NOTE | 2021-11-06 12:22 | PM.PN ---
Subjective Subjective: Seen this AM. UCx positive for staph aureus sensitive to levo, augmentin, ceftriaxone. Not ESBL. BCx pending. Backpain improved. Flank pain improved but present. Vitals/I&O/Wt Last Vital Signs Temp 98.3 F 11/06/21 11:57 Pulse 94 11/06/21 11:57 Resp 16 11/06/21 11:57 BP 136/74 11/06/21 11:57 Pulse Ox 96 11/06/21 11:57 11/05/21 11/06/21 11/06/21 22:59 06:59 14:59 Intake Total 2204 / 3034 50 / 3084 1410 / 1410 Output Total 340 / 1200 210 / 1410 1150 / 1150 Balance 1864 / 1834 -160 / 1674 260 / 260 Weight last 48 hrs Weight 102.058 kg Physical Exam Narrative: General: Alert oriented x3, patient seen sitting up in bed appearing comfortable at this time. HEENT: Normocephalic, atraumatic, EOMI, breathing normally Cardio: Regular rate rhythm, normal S1-S2, no murmurs Respiratory: Good bilateral air entry, no wheezes no rhonchi appreciated GI: Abdomen soft, nontender, nondistended, bowel sounds + : Tenderness to palpation at left flank are but improved compared to yesterday Behavior: Appropriate and cooperative Extremities: No lower extremity edema, no cyanosis Data : 11/06/21 05:59 11/06/21 05:59 A&P Assessment and plan (1) Major depressive disorder, recurrent severe without psychotic features: Status: Acute (2) Post-traumatic stress disorder, chronic: Status: Acute (3) Generalized anxiety disorder: Status: Acute (4) Peripheral neuropathy: Status: Acute (5) Bilateral carpal tunnel syndrome: Status: Acute (6) Major depressive disorder, recurrent, in partial remission: Status: Acute (7) Pyelonephritis: Status: Acute (8) Staghorn calculus: Status: Acute Plan #Pyelonephritis #Staghorn calculi #Hypothyroidism #Diabetes mellitus #Depression/anxiety #Hyperlipidemia #Hypertension ? Afebrile overnight.? ? Continue all other home medications at this time.? Hold metformin, Jardiance. ? We will need to follow-up with urology outpatient after discharge for further work-up and management of his staghorn calculi ? Continue IV antibiotics for now. Stop Zosyn. Switch to ceftriaxone. - UCx positive for staph aureus. Will need to r/o bacteremia. - If Bcx clear, will dc pt home on oral levofloxacin and have him f/u with Dr. Fierro for tertiary [facility] referral for percutaneous lithotripsy and further management. He will need to be on antibiotics until his procedure. Full code DVT prophylaxis: Heparin subcu updated over the phone Attestations Medical Necessity Statement*: Bcx pending Cannot dc until bacteremia ruled out Coding Level of Care Code Acute Custom Designer for Chg Fwd Diagnoses Major depressive disorder, recurrent severe without psychotic features F33.2 Post-traumatic stress disorder, chronic F43.12 Generalized anxiety disorder F41.1 Peripheral neuropathy G62.9 Bilateral carpal tunnel syndrome G56.03 Major depressive disorder, recurrent, in partial remission F33.41 Pyelonephritis N12 Staghorn calculus N20.0
[2021-11-06] MEDS: cefTRIAXone 1,000 MG in sodium chloride 0.9% (plus) 50 ML 100 MG IV (12:58)
[2021-11-06 15:27] VITALS: BP 126/81; PULSE 94; RESP 16; TEMP 37; O2SAT 97
[2021-11-06] MEDS: ondansetron 2 mg/ML SDV 2 mL 4 MG IVP ×2 (15:44→21:36)
--- NOTE | 2021-11-06 16:21 | XRR_ITS ---
PROCEDURE INFORMATION: Exam: XR Chest Exam date and time: 11/06/2021 5:31 PM Age: 61 years old Clinical indication: Device placement; Picc; Additional info: Picc line placement, picc team will call when chest XR needed TECHNIQUE: Imaging protocol: Radiologic exam of the chest. Views: 1 view. COMPARISON: CR XR chest 2V* [id number] 03/26/2021 10:56 AM FINDINGS: Tubes, catheters and devices: Interval placement of a right upper extremity PICC with the tip at the right atrium. Lungs: Lungs are clear bilaterally. Pleural spaces: No pleural effusion. No pneumothorax. Heart/Mediastinum: The cardiac silhouette and mediastinal contours are unremarkable. Bones/joints: Unremarkable for age. XR/XR chest 1V portable [id number] IMPRESSION: 1. No acute cardiopulmonary process. 2. Interval placement of a right upper extremity PICC with the tip at the right atrium.
--- NOTE | 2021-11-06 16:40 | SUR.PREOP ---
TIME OUT FOR PICC LINE INSERTION
[2021-11-06 17:42] LABS: Glucose Point of Care 107 mg/dL (70-110)
[2021-11-06] MEDS: sodium chloride 0.9% 1,000 ML 125 ML IV (17:51)
[2021-11-06] MEDS: diphenhydrAMINE 50 mg/mL SDV 1mL IVP (17:51)
[2021-11-06] MEDS: dexamethasone 4 mg/mL INJ IVP (17:51)
[2021-11-06] MEDS: metoclopramide 5 mg/mL SDV 2 mL IVP (17:51)
[2021-11-06 20:00] VITALS: BP 128/68; PULSE 85; RESP 19; TEMP 36.4; O2SAT 98
[2021-11-06 21:05] LABS: Glucose Point of Care 190 mg/dL (70-110)
[2021-11-07] VITALS (9 sets, daily range): BP systolic 113–157; BP diastolic 65–81; PULSE 68–81; RESP 16–19; TEMP 36.3–36.9; O2SAT 93–100
[2021-11-07] MEDS: sodium chloride 0.9% 1,000 ML 125 ML IV ×3 (01:31→17:51)
[2021-11-07 03:16] LABS: Basophils % 0.4 %; Hematocrit 41.5 % (42.0-52.0); Hemoglobin 13.4 g/dL (11.7-16.6); Lymphocytes % 11.8 %; Mean Corpuscular HGB Conc 32.3 g/dL (30.0-36.0); Mean Corpuscular Hemoglobin 30.4 pg (28.0-34.0); Mean Corpuscular Volume 94.1 fl (80-94); Mean Platelet Volume 9.4 fL (7.4-10.4); Monocytes # 0.4 10^3/uL (0.2-0.9); Monocytes % 5.2 %; Neutrophils % 82.1 %; Nucleated Red Blood Cells % 0 %; Platelet Count 245 10^3/cmm (130-400); Red Blood Count 4.41 10^6/uL (4.1-5.3); Red Cell Distribution Width 15.2 % (12.1-15.1); White Blood Count 8.3 10^3/uL (4.0-10.0)
[2021-11-07] MEDS: lisinopril 20 mg Tablet 30 MG PO (05:40)
[2021-11-07] MEDS: atorvastatin 40 mg Tablet 20 MG PO (05:41)
[2021-11-07] MEDS: levothyroxine 50 mcg Tablet PO (05:41)
[2021-11-07 06:27] LABS: Glucose Point of Care 131 mg/dL (70-110)
[2021-11-07] MEDS: venlafaxine ER (24HR) 150 mg Capsule PO (09:56)
[2021-11-07] MEDS: venlafaxine ER (24HR) 75 mg Capsule PO (09:56)
[2021-11-07] MEDS: BuSPIRONE 10 mg Tablet 5 MG PO ×3 (09:56→21:32)
[2021-11-07] MEDS: piperacillin-tazobactam 3.375 GM in sodium chloride 0.9% (plus) 50 ML IV (09:57)
[2021-11-07] MEDS: sennosides-docusate Tablet 1 TAB PO (09:57)
[2021-11-07 11:15] LABS: Glucose Point of Care 104 mg/dL (70-110)
--- NOTE | 2021-11-07 12:13 | PM.PN ---
Subjective Subjective: seen this AM. no acute events overnight however yesterday afternoon after dose of cetriaxone pt developed facial flushing, nausea vomitting and diarrhea episode and started having hot flashes. He was given benadryl and dexamethasone. BCx pending. Vitals/I&O/Wt Last Vital Signs Temp 98.0 F 11/07/21 11:40 Pulse 81 11/07/21 11:40 Resp 18 11/07/21 11:40 BP 132/81 11/07/21 11:40 Pulse Ox 100 11/07/21 11:40 11/06/21 11/07/21 11/07/21 22:59 06:59 14:59 Intake Total 460 / 2160 1978.333 / 4138.333 1120 / 1120 Output Total 200 / 1350 1550 / 2900 Balance 260 / 810 428.333 / 5973.222 3324 / 1120 Physical Exam Narrative: General: Alert oriented x3, patient seen sitting up in bed appearing comfortable at this time. HEENT: Normocephalic, atraumatic, EOMI, breathing normally Cardio: Regular rate rhythm, normal S1-S2, no murmurs Respiratory: Good bilateral air entry, no wheezes no rhonchi appreciated GI: Abdomen soft, nontender, nondistended, bowel sounds + : Flank pain improved Behavior: Appropriate and cooperative Extremities: No lower extremity edema, no cyanosis Data : 11/07/21 02:34 11/06/21 05:59 Micro: Microbiology 11/04/21 15:45 Urine Culture - Final Urine,Clean Catch Staphylococcus aureus 11/06/21 12:32 Blood Culture - Preliminary Blood SPECIMEN COLLECTED 11/06/21 12:29 Blood Culture - Preliminary Blood SPECIMEN COLLECTED A&P Assessment and plan (1) Major depressive disorder, recurrent severe without psychotic features: Status: Acute (2) Generalized anxiety disorder: Status: Acute (3) Post-traumatic stress disorder, chronic: Status: Acute (4) Peripheral neuropathy: Status: Acute (5) Bilateral carpal tunnel syndrome: Status: Acute (6) Major depressive disorder, recurrent, in partial remission: Status: Acute (7) Staghorn calculus: Status: Acute (8) Pyelonephritis: Status: Acute Plan #Pyelonephritis 2/2 staph aureus #Staghorn calculi #Hypothyroidism #Diabetes mellitus #Depression/anxiety #Hyperlipidemia #Hypertension ? Afebrile overnight.? ? Continue all other home medications at this time.? Hold metformin, Jardiance. ? We will need to follow-up with urology outpatient after discharge for further work-up and management of his staghorn calculi ? Continue IV antibiotics for now. Continue zosyn. - UCx positive for staph aureus. Will need to r/o bacteremia. - If Bcx clear, will dc pt home on IV abx x2 weeks and have him f/u with Dr. Fierro for tertiary [facility] referral for percutaneous lithotripsy and further management. He will need to be on antibiotics until his procedure. Full code DVT prophylaxis: Heparin subcu updated over the phone Attestations Medical Necessity Statement*: Bcx pending Cannot dc until bacteremia ruled out Coding Level of Care Code Acute Telephone Information Clerk for Chg Fwd Diagnoses Major depressive disorder, recurrent severe without psychotic features F33.2 Generalized anxiety disorder F41.1 Post-traumatic stress disorder, chronic F43.12 Peripheral neuropathy G62.9 Bilateral carpal tunnel syndrome G56.03 Major depressive disorder, recurrent, in partial remission F33.41 Staghorn calculus N20.0 Pyelonephritis N12
--- NOTE | 2021-11-07 13:37 | PC.SOCIAL ---
Pg 2 IMM Explained to pt Pg 2 IMM. No questions voiced. Provided pt a copy. Initialed, dated, & timed a copy & placed in chart.
[2021-11-07] MEDS: ceFAZolin 2,000 MG in sodium chloride 0.9% (plus) 50 ML 100 MG IV ×2 (14:47→21:21)
[2021-11-07 17:24] LABS: Glucose Point of Care 79 mg/dL (70-110)
--- NOTE | 2021-11-07 17:58 | PC.NURSE ---
Changed dressing on PICC line after 24 hours.
[2021-11-07 21:04] LABS: Glucose Point of Care 105 mg/dL (70-110)
[2021-11-07] MEDS: guaiFENesin 600 mg Tablet PO (22:04)
[2021-11-07] MEDS: morphine IR 15 mg Tablet PO (23:05)
[2021-11-08] VITALS (8 sets, daily range): BP systolic 134–174; BP diastolic 75–95; PULSE 71–85; RESP 16–22; TEMP 36.7–37.1; O2SAT 97–99
[2021-11-08 06:14] LABS: Glucose Point of Care 150 mg/dL (70-110)
[2021-11-08] MEDS: ceFAZolin 2,000 MG in sodium chloride 0.9% (plus) 50 ML 100 MG IV ×3 (06:18→21:10)
[2021-11-08] MEDS: atorvastatin 40 mg Tablet 20 MG PO (06:18)
[2021-11-08] MEDS: levothyroxine 50 mcg Tablet PO (06:19)
[2021-11-08] MEDS: lisinopril 20 mg Tablet 30 MG PO (06:19)
--- NOTE | 2021-11-08 08:14 | P.PN_ITS ---
Subjective Subjective: Seen this morning. Patient is doing well. He tolerated cefazolin with no issues. Order for cefazolin has been placed as an outpatient. PICC is already placed. No acute events overnight. Vitals/I&O/Wt Last Vital Signs Temp 98.6 F 11/08/21 07:43 Pulse 76 11/08/21 07:43 Resp 18 11/08/21 07:43 BP 134/81 11/08/21 07:43 Pulse Ox 99 11/08/21 07:43 11/07/21 11/08/21 11/08/21 22:59 06:59 14:59 Intake Total 2617.5 / 3737.5 1850 / 5587.5 Output Total 300 / 300 700 / 1000 Balance 2317.5 / 3437.5 1150 / 4587.5 Physical Exam Narrative: General: Alert oriented x3, no acute distress HEENT: Normocephalic, atraumatic, EOMI, breathing normally Cardio: Regular rate rhythm, normal S1-S2, no murmurs Respiratory: Good bilateral air entry, no wheezes no rhonchi appreciated GI: Abdomen soft, nontender, nondistended, bowel sounds + : Flank pain improved Behavior: Appropriate and cooperative Extremities: No lower extremity edema, no cyanosis Data : 11/07/21 02:34 11/06/21 05:59 Micro: Microbiology 11/06/21 12:32 Blood Culture - Preliminary Blood NEGATIVE TO DATE 11/06/21 12:29 Blood Culture - Preliminary Blood NEGATIVE TO DATE A&P Assessment and plan (1) Major depressive disorder, recurrent severe without psychotic features: Status: Acute (2) Generalized anxiety disorder: Status: Acute (3) Post-traumatic stress disorder, chronic: Status: Acute (4) Peripheral neuropathy: Status: Acute (5) Bilateral carpal tunnel syndrome: Status: Acute (6) Major depressive disorder, recurrent, in partial remission: Status: Acute (7) Staghorn calculus: Status: Acute (8) Pyelonephritis: Status: Acute Plan #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 Afebrile overnight.? ? Continue all other home medications at this time.? Hold metformin, Jardiance. ? We will need to follow-up with urology outpatient after discharge for further work-up and management of his staghorn calculi ? Continue IV antibiotics for now. Continue cefazolin 2 g IV every 8 hours. Discussed with infectious disease. We will treat for 14 to 21 days until stone is removed. Dr. Fierro with coordinate referral to tertiary [facility] for percutaneous lithotripsy. - UCx positive for staph aureus. Will need to r/o bacteremia. Blood cultures negative to date so far. -Patient can be discharged once home antibiotics are set up. Full code DVT prophylaxis: Heparin subcu updated over the phone Attestations Medical Necessity Statement*: Ready for discharge but home antibiotics not set up yet. I will discharge patient once home health set up. Coding Level of Care Code Acute Beef Ribber for rivera Fwd Diagnoses Major depressive disorder, recurrent severe without psychotic features F33.2 Generalized anxiety disorder F41.1 Post-traumatic stress disorder, chronic F43.12 Peripheral neuropathy G62.9 Bilateral carpal tunnel syndrome G56.03 Major depressive disorder, recurrent, in partial remission F33.41 Staghorn calculus N20.0 Pyelonephritis N12
[2021-11-08] MEDS: insulin lispro 100 unit/1 mL SUBCUT (08:41)
[2021-11-08] MEDS: venlafaxine ER (24HR) 75 mg Capsule PO (08:43)
[2021-11-08] MEDS: venlafaxine ER (24HR) 150 mg Capsule PO (08:43)
[2021-11-08] MEDS: BuSPIRONE 10 mg Tablet 5 MG PO ×3 (08:43→21:10)
[2021-11-08] MEDS: guaiFENesin 600 mg Tablet PO ×2 (08:44→17:10)
[2021-11-08] MEDS: sennosides-docusate Tablet 1 TAB PO (08:44)
[2021-11-08 11:43] LABS: Glucose Point of Care 84 mg/dL (70-110)
--- NOTE | 2021-11-08 14:00 | PC.NURSE ---
PICC line retracted 2 cm.
[2021-11-08] MEDS: acetaminophen 500 mg Tablet PO (15:54)
[2021-11-08 17:02] LABS: Glucose Point of Care 87 mg/dL (70-110)
--- NOTE | 2021-11-08 18:10 | PC.NURSE ---
Gave patient 500 mg tylenol for headach. Stated his head still hurt. Offered PO morphine and patient refused at this time.
[2021-11-08 20:32] LABS: Glucose Point of Care 103 mg/dL (70-110)
[2021-11-09] VITALS (9 sets, daily range): BP systolic 107–141; BP diastolic 68–91; PULSE 68–89; RESP 14–18; TEMP 36.4–37; O2SAT 92–100
[2021-11-09] MEDS: acetaminophen 500 mg Tablet PO (04:10)
[2021-11-09] MEDS: lisinopril 20 mg Tablet 30 MG PO (06:11)
[2021-11-09] MEDS: levothyroxine 50 mcg Tablet PO (06:11)
[2021-11-09] MEDS: atorvastatin 40 mg Tablet 20 MG PO (06:11)
[2021-11-09] MEDS: ceFAZolin 2,000 MG in sodium chloride 0.9% (plus) 50 ML 100 MG IV ×3 (06:12→21:20)
[2021-11-09 06:31] LABS: Glucose Point of Care 124 mg/dL (70-110)
--- NOTE | 2021-11-09 07:57 | PM.PN ---
Subjective Subjective: Seen this morning. No acute events overnight. Awaiting antibiotic set up as an outpatient Vitals/I&O/Wt Last Vital Signs Temp 98.0 F 11/09/21 04:00 Pulse 76 11/09/21 04:00 Resp 17 11/09/21 04:00 BP 115/73 11/09/21 04:00 Pulse Ox 99 11/09/21 04:00 11/08/21 11/09/21 11/09/21 22:59 06:59 14:59 Intake Total 700 / 1060 650 / 1710 Output Total 600 / 1050 800 / 1850 Balance 100 / 10 -150 / -140 Physical Exam Narrative: General: Alert oriented x3, no acute distress HEENT: Normocephalic, atraumatic, EOMI, breathing normally Cardio: Regular rate rhythm, normal S1-S2, no murmurs Respiratory: Good bilateral air entry, no wheezes no rhonchi appreciated GI: Abdomen soft, nontender, nondistended, bowel sounds + : Flank pain improved Behavior: Appropriate and cooperative Extremities: No lower extremity edema, no cyanosis Data : 11/09/21 08:10 11/09/21 08:10 A&P Assessment and plan (1) Major depressive disorder, recurrent severe without psychotic features: Status: Acute (2) Generalized anxiety disorder: Status: Acute (3) Post-traumatic stress disorder, chronic: Status: Acute (4) Peripheral neuropathy: Status: Acute (5) Bilateral carpal tunnel syndrome: Status: Acute (6) Major depressive disorder, recurrent, in partial remission: Status: Acute (7) Staghorn calculus: Status: Acute (8) Pyelonephritis: Status: Acute Plan #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 Afebrile overnight.? ? Continue all other home medications at this time.? Hold metformin, Jardiance. ? We will need to follow-up with urology outpatient after discharge for further work-up and management of his staghorn calculi ? Continue IV antibiotics for now. Continue cefazolin 2 g IV every 8 hours.? Discussed with infectious disease.? We will treat for 14 to 21 days until stone is removed.? Dr. Fierro with coordinate referral to tertiary care center for percutaneous lithotripsy. - UCx positive for staph aureus. Blood cultures negative to date so far. -Patient can be discharged once home antibiotics are set up. Full code DVT prophylaxis: Heparin subcu updated over the phone Attestations Medical Necessity Statement*: Ready for discharge but home antibiotics not set up yet.? I will discharge patient once home health set up. Coding Level of Care Code Acute Maintenance Tech for g Fwd Diagnoses Major depressive disorder, recurrent severe without psychotic features F33.2 Generalized anxiety disorder F41.1 Post-traumatic stress disorder, chronic F43.12 Peripheral neuropathy G62.9 Bilateral carpal tunnel syndrome G56.03 Major depressive disorder, recurrent, in partial remission F33.41 Staghorn calculus N20.0 Pyelonephritis N12
[2021-11-09] MEDS: guaiFENesin 600 mg Tablet PO ×2 (08:15→18:04)
[2021-11-09] MEDS: sennosides-docusate Tablet 1 TAB PO (08:15)
[2021-11-09] MEDS: venlafaxine ER (24HR) 75 mg Capsule PO (08:15)
[2021-11-09] MEDS: BuSPIRONE 10 mg Tablet 5 MG PO ×3 (08:15→21:21)
[2021-11-09] MEDS: venlafaxine ER (24HR) 150 mg Capsule PO (08:15)
[2021-11-09 08:48] LABS: Basophils % 0.6 %; Eosinophils # 0.1 10^3/uL (0.0-0.8); Eosinophils % 1.2 %; Hematocrit 45.8 % (42.0-52.0); Hemoglobin 15.4 g/dL (11.7-16.6); Lymphocytes # 2.7 10^3/uL (0.8-4.8); Lymphocytes % 41.5 %; Mean Corpuscular HGB Conc 33.6 g/dL (30.0-36.0); Mean Corpuscular Hemoglobin 30.1 pg (28.0-34.0); Mean Corpuscular Volume 89.6 fl (80-94); Mean Platelet Volume 9.5 fL (7.4-10.4); Monocytes # 0.6 10^3/uL (0.2-0.9); Monocytes % 9.1 %; Neutrophils # 3.06 10^3/uL (1.8-7.7); Neutrophils % 47.3 %; Nucleated Red Blood Cells % 0 %; Platelet Count 222 10^3/cmm (130-400); Red Blood Count 5.11 10^6/uL (4.1-5.3); Red Cell Distribution Width 14.9 % (12.1-15.1); White Blood Count 6.5 10^3/uL (4.0-10.0)
[2021-11-09 09:16] LABS: Anion Gap 18.1 (5-19); Blood Urea Nitrogen 16 mg/dL (8-23); Calcium 8.8 mg/dL (8.5-10.5); Carbon Dioxide 20 mmol/L (22-29); Chloride 100 mmol/L (98-107); Creatinine Clr Calc Pharmacy 90.9591; Glomerular Filtration Rate 76.2 mL/min (90-130); Glucose 107 mg/dL (65-115); Osmolality Calculated 280 mOsm/kg (285-295); Potassium 4.1 mmol/L (3.5-5.1); Sodium 134 mmol/L (136-145)
[2021-11-09 11:07] LABS: Glucose Point of Care 113 mg/dL (70-110)
--- NOTE | 2021-11-09 13:17 | PC.SOCIAL ---
IMM Update pg 2 of IMM updated and reviewed w/ patient. Copy provided and copy placed in chart.
[2021-11-09 16:54] LABS: Glucose Point of Care 123 mg/dL (70-110)
[2021-11-09 20:47] LABS: Glucose Point of Care 162 mg/dL (70-110)
[2021-11-10 04:00] VITALS: BP 123/84; PULSE 86; RESP 16; TEMP 37.4; O2SAT 93
[2021-11-10] MEDS: atorvastatin 40 mg Tablet 20 MG PO (05:29)
[2021-11-10] MEDS: lisinopril 20 mg Tablet 30 MG PO (05:30)
[2021-11-10] MEDS: ceFAZolin 2,000 MG in sodium chloride 0.9% (plus) 50 ML 100 MG IV ×2 (05:31→13:29)
[2021-11-10] MEDS: levothyroxine 50 mcg Tablet PO (05:31)
[2021-11-10 06:14] LABS: Glucose Point of Care 127 mg/dL (70-110)
[2021-11-10 07:24] VITALS: BP 103/64; PULSE 76; RESP 16; TEMP 36.7; O2SAT 98
[2021-11-10 08:40] VITALS: PULSE 86; RESP 18; O2SAT 95
[2021-11-10] MEDS: venlafaxine ER (24HR) 75 mg Capsule PO (08:53)
[2021-11-10] MEDS: BuSPIRONE 10 mg Tablet 5 MG PO ×2 (08:53→14:19)
[2021-11-10] MEDS: venlafaxine ER (24HR) 150 mg Capsule PO (08:53)
[2021-11-10] MEDS: sennosides-docusate Tablet 1 TAB PO (08:54)
[2021-11-10] MEDS: guaiFENesin 600 mg Tablet PO (08:54)
--- NOTE | 2021-11-10 10:05 | P.DS_ITS ---
Discharge Providers Date of Admission: 11/04/21 18:12 Date of Discharge: November 10, 2021 Attending Provider at Admission: Gayle Reyes MD Attending Provider at Discharge: Tequila Harper MD Primary Care Provider: Lucian Ng MD Diagnoses at Discharge Discharge Diagnosis (1) Major depressive disorder, recurrent severe without psychotic features: Status: Acute (2) Generalized anxiety disorder: Status: Acute (3) Post-traumatic stress disorder, chronic: Status: Acute (4) Peripheral neuropathy: Status: Acute (5) Bilateral carpal tunnel syndrome: Status: Acute (6) Major depressive disorder, recurrent, in partial remission: Status: Acute (7) Staghorn calculus: Status: Acute (8) Pyelonephritis: Status: Acute Reason for Visit Reason for Visit: lower abd pain Brief History: Catracho Dawson is a 61 year old male who carries history of diabetes and hypertension who presented today with chief complaint of scrotal pain.? Patient is stating that around COV pandemic he was experiencing similar complaint which she is describing as abdominal discomfort, he stating that he toughed it out did not seek medical help however 4 days ago he started experiencing left scrotal pain and today it got worse he decided to come to the hospital for further evaluation, he has not noticed any chest pain, shortness of breath, fever, nausea or vomiting.? He has not noticed any changes in his urinary stream.? 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 In the ER he has been diagnosed with pyelonephritis, staghorn calculi without hydronephrosis, he is not septic at this point, he is n.p.o., Dr. Fierro is coming to see him, he will be kept n.p.o. until urology evaluation Afebrile He has been given antibiotics, mild leukocytosis Creatinine is normal Patient is stating that he is up-to-date with his colonoscopies, they were unremarkable, he does endorse that his PSA level was within normal range however he has been noticing nocturia, he does wake up 2-3 times at night Hospital Course Hospital Course Patient was admitted for pyelonephritis, with staghorn calculi. He was placed on broad-spectrum antibiotic after urine culture sensitivity was back. Urine grew staph aureus. Blood cultures were negative. Patient continued to improve. PICC line was placed and he was sent home with cefazolin 2 g IV every 8 hours. Case was discussed with ID over the phone further input. He is to see Dr. Fierro after discharge to coordinate referral to tertiary care center for percutaneous lithotripsy. Until then Dr. Fierro recommended to continue the antibiotics. We have ordered them for 21 days for now. However if patient gets still not sooner he will complete 14 days of therapy. All questions were answered to patient satisfaction and he was happy with the care provided. Home health was set up for the patient. Patient's was also updated over the phone regarding the plan. Physical Exam Narrative: General: Alert oriented x3, no acute distress HEENT: Normocephalic, atraumatic, EOMI, breathing normally Cardio: Regular rate rhythm, normal S1-S2, no murmurs Respiratory: Good bilateral air entry, no wheezes no rhonchi appreciated GI: Abdomen soft, nontender, nondistended, bowel sounds + : Flank pain improved Behavior: Appropriate and cooperative Extremities: No lower extremity edema, no cyanosis Discharge Data Studies Completed and Pending Completed Studies During Hospitalization Category Date Time Status CT abdomen pelvis wo con [id number] Stat Cat Scan 11/04/21 16:01 Completed XR chest 1V portable [id number] Routine Exams 11/06/21 16:21 Completed US testicular [US scrotum [id number]] Stat Ultrasound 11/04/21 16:00 Completed Pending at discharge Category Date Time Status Blood Culture Stat Lab 11/06/21 12:32 Results Radiology Impressions Scrotum Ultrasound 11/04/21 16:00 IMPRESSION: No acute findings. Abdomen/Pelvis CT 11/04/21 16:01 IMPRESSION: 1. Staghorn calculus nearly completely filling the left renal collecting system. No hydronephrosis or ureteral dilation. Peripelvic edema and urothelial thickening may represent pyelitis or early xanthogranulomatous pyelonephritis. 2. Incidental findings above. Chest X-Ray 11/06/21 16:21 IMPRESSION: 1. No acute cardiopulmonary process. 2. Interval placement of a right upper extremity PICC with the tip at the right atrium. Laboratory Results WBC 6.5 10^3/uL (4.0-10.0) 11/09/21 08:10 RBC 5.11 10^6/uL (4.1-5.3) 11/09/21 08:10 Hgb 15.4 g/dL (11.7-16.6) 11/09/21 08:10 Hct 45.8 % (42.0-52.0) 11/09/21 08:10 MCV 89.6 fl (80-94) 11/09/21 08:10 MCH 30.1 pg (28.0-34.0) 11/09/21 08:10 MCHC 33.6 g/dL (30.0-36.0) 11/09/21 08:10 RDW 14.9 % (12.1-15.1) 11/09/21 08:10 Plt Count 222 10^3/cmm (130-400) 11/09/21 08:10 MPV 9.5 fL (7.4-10.4) 11/09/21 08:10 Neut % (Auto) 47.3 % 11/09/21 08:10 Lymph % (Auto) 41.5 % 11/09/21 08:10 [place] % (Auto) 9.1 % 11/09/21 08:10 Eos % (Auto) 1.2 % 11/09/21 08:10 Baso % (Auto) 0.6 % 11/09/21 08:10 Neut # (Auto) 3.06 10^3/uL (1.8-7.7) 11/09/21 08:10 Lymph # (Auto) 2.7 10^3/uL (0.8-4.8) 11/09/21 08:10 [place] # (Auto) 0.6 10^3/uL (0.2-0.9) 11/09/21 08:10 Eos # (Auto) 0.1 10^3/uL (0.0-0.8) 11/09/21 08:10 Baso # (Auto) 0.0 10^3/uL (0.0-0.1) 11/09/21 08:10 Nucleated RBC % (auto) 0 % 11/09/21 08:10 Nucleated RBCs # 0.0 /100WBC 11/09/21 08:10 Sodium 134 mmol/L (136-145) L 11/09/21 08:10 Potassium 4.1 mmol/L (3.5-5.1) 11/09/21 08:10 Chloride 100 mmol/L (98-107) 11/09/21 08:10 Carbon Dioxide 20 mmol/L (22-29) L 11/09/21 08:10 Anion Gap 18.1 (5-19) 11/09/21 08:10 BUN 16 mg/dL (8-23) 11/09/21 08:10 Creatinine 1.0 mg/dL (0.7-1.2) 11/09/21 08:10 GFR Calculation 76.2 mL/min (90-130) L 11/09/21 08:10 Glucose 107 mg/dL (65-115) 11/09/21 08:10 POC Glucose 127 mg/dL (70-110) H 11/10/21 06:02 Estimat Average Glucose 154 11/04/21 15:45 Hemoglobin A1c 7.0 % (4.0-6.0) H 11/04/21 15:45 Calculated Osmolality 280 mOsm/kg (285-295) L 11/09/21 08:10 Calcium 8.8 mg/dL (8.5-10.5) 11/09/21 08:10 Magnesium 2.0 mg/dL (1.7-2.3) 11/05/21 05:28 Total Bilirubin 0.3 mg/dL (0.15-1.2) 11/05/21 05:28 AST 14 U/L (0-40) 11/05/21 05:28 ALT 16 U/L (0-41) 11/05/21 05:28 Alkaline Phosphatase 74 IU/L (40-130) 11/05/21 05:28 C-Reactive Protein 12.4 mg/L (0.0-4.9) H 11/05/21 05:28 Total Protein 7.2 g/dL (6.6-8.7) 11/05/21 05:28 Albumin 4.0 g/dL (3.5-5.2) 11/05/21 05:28 Globulin 3.2 g/dL (1.3-4.6) 11/05/21 05:28 Lipase 38 U/L (13-60) 11/04/21 16:40 Prostate Specific Ag 0.567 ng/mL (0-4) 11/04/21 16:40 Procalcitonin 0.11 ng/mL (0-0.5) 11/04/21 16:40 Urine Color Yellow (Yellow) 11/04/21 15:45 Urine Appearance Hazy (CLEAR) A 11/04/21 15:45 Urine pH 6 (5-7) 11/04/21 15:45 Ur Specific [place] 1.010 (1.005-1.030) 11/04/21 15:45 Urine Protein Neg (Negative) 11/04/21 15:45 Urine Glucose (UA) 4+ (Normal) H 11/04/21 15:45 Urine Ketones Negative (Negative) 11/04/21 15:45 Urine Blood 3+ (Negative) H 11/04/21 15:45 Urine Nitrate Negative (Negative) 11/04/21 15:45 Urine Bilirubin Neg (Negative) 11/04/21 15:45 Urine Urobilinogen Norm mg/dL (Negative) 11/04/21 15:45 Ur Leukocyte Esterase 2+ (Negative) H 11/04/21 15:45 Urine RBC 10-15 /hpf (0-2) H 11/04/21 15:45 Urine WBC >100 /hpf (0-5) H 11/04/21 15:45 Ur Squamous Epith Cells 0-4 /hpf (0-5) H 11/04/21 15:45 Amorphous Sediment Not Reportable 11/04/21 15:45 Urine Bacteria 1+ /hpf (NONE) H 11/04/21 15:45 Vitals Last Vital Signs Temp 98.0 F 11/10/21 07:24 Pulse 86 11/10/21 08:40 Resp 18 11/10/21 08:40 BP 103/64 11/10/21 07:24 Pulse Ox 95 11/10/21 08:40 Discharge Plan Discharge Patient Disposition: Home Health Service Condition: Stable Prescriptions: Continued rosuvastatin 5 mg tablet 5 mg PO QAM 0RF lisinopril 30 mg tablet 30 mg PO QAM 0RF buspirone 5 mg tablet 5 mg PO TID Qty: 90 2RF venlafaxine 150 mg tablet extended release 24 hr 150 mg PO DAILY Qty: 30 2RF Rx Instructions: To be taken with 75 mg cap for total of 225 mg daily. venlafaxine [Effexor XR] 75 mg capsule,extended release 24hr 75 mg PO DAILY Qty: 30 2RF Rx Instructions: To be taken with 150 mg cap for total of 225 mg daily. Jardiance 25 mg tablet 25 mg PO QAM 0RF levothyroxine 50 mcg tablet 50 mcg PO QAM 0RF metformin 500 mg tablet extended release 24 hr 1,000 mg PO BEDTIME 0RF Discharge Orders: Discharge Order (Routine); Ordered 11/10/21 Ordered By: Tequila Harper Referrals: Hemant Fierro MD [Physician] - 1-3 days (Dr. Fierro's office will call you with an appointment. If they do not call you by noon tomorrow please call their office at [phone] and request an appointment time as soon as possible. ) Lucian Ng MD [Primary Care Provider] - 11/14/21 9:30 am (Your follow up appointment with Dr. Ng is scheduled for October, at 9:30 am. Please call [phone] if you have any questions or concerns Thank You.) Discharge Diet: Diabetic Discharge Activity: Resume usual activity Patient Instructions: Lisinopril (By mouth) (Prinivil, Zestril), Buspirone (By mouth), Levothyroxine (By mouth) (Levothroid, Levoxyl, Synthroid, Tirosint), Venlafaxine (By mouth) (Effexor, Effexor XR), Metformin (By mouth) (Glucophage, Glucophage XR, Fortamet,..., Rosuvastatin (By mouth) (Krestor, Ezallor), Empagliflozin (By mouth) (Jardiance), Urinary Tract Infection in Men (DC), Opioid Safety Activity Restrictions/Additional Instructions: Please follow up with Dr. Fierro for further management. He will decide on antibiotic duration past 14 days. For now you must have your IV antibiotics for 14 days. You will be on cefazolin 2g q8H. If worsening abdominal, back, flank pain, development of fever, shortness of breath, lightheadedness, dizziness, blood in urine, please return to ER immediately. Discharge Attestations Time Spent in Discharge Care*: less than 30 min Quality Metrics Clinical Quality Measures [ No reported AMI, CVA or VTE this stay] Coding Level of Care Code Acute Chg FW DC note Diagnoses Major depressive disorder, recurrent severe without psychotic features F33.2 Generalized anxiety disorder F41.1 Post-traumatic stress disorder, chronic F43.12 Peripheral neuropathy G62.9 Bilateral carpal tunnel syndrome G56.03 Major depressive disorder, recurrent, in partial remission F33.41 Staghorn calculus N20.0 Pyelonephritis N12
[2021-11-10 11:24] LABS: Glucose Point of Care 162 mg/dL (70-110)
[2021-11-10 11:30] VITALS: BP 112/67; PULSE 73; RESP 15; TEMP 36.8; O2SAT 98
[2021-11-10] MEDS: insulin lispro 100 unit/1 mL SUBCUT (12:20)
[2021-11-10] MEDS: acetaminophen 500 mg Tablet PO (14:19)
== END 2021-11-10 15:16 | disposition home health service (06) | DRG 694 ==
LOC: ER 15:48 → MEDSURG 19:24
PROVIDERS: Emergency Medicine; Admitting Provider Internal Medicine; Emergency Provider Family Medicine; PCP Family Medicine; Visit Provider Internal Medicine
DX: N20.0 Calculus of kidney (principal); Z87.442 Personal history of urinary calculi; F41.1 Generalized anxiety disorder; E11.42 Type 2 diabetes mellitus with diabetic polyneuropathy; I10 Essential (primary) hypertension; F32.4 Major depressive disorder, single episode, in partial remission; E03.9 Hypothyroidism, unspecified; F43.12 Post-traumatic stress disorder, chronic; Z79.84 Long term (current) use of oral hypoglycemic drugs; Z87.440 Personal history of urinary (tract) infections; B95.8 Unspecified staphylococcus as the cause of diseases classified elsewhere
CPT/HCPCS: 36415; 36416; 36569; 71045; 74176; 76870; 80048; 80053; 81001; 82962; 83036; 83690; 83735; 84145; 84153; 85025; 86140; 87040; 87077; 87086; 87186; 96372; 96374; 99285; J0696; J1100; J1170; J1200; J1815; J2405; J2543; J2765; J7030

== ENCOUNTER 2021-11-17 14:37 | Outpatient (CLI) | payer MEDICARE, SELFPAY ==
[2021-11-17 14:52] LABS: Basophils # 0.1 10^3/uL (0.0-0.1); Basophils % 0.6 %; Eosinophils # 0.2 10^3/uL (0.0-0.8); Hematocrit 43.4 % (42.0-52.0); Lymphocytes # 3.6 10^3/uL (0.8-4.8); Mean Corpuscular HGB Conc 32.3 g/dL (30.0-36.0); Mean Corpuscular Hemoglobin 30.6 pg (28.0-34.0); Mean Corpuscular Volume 94.8 fl (80-94); Mean Platelet Volume 10.2 fL (7.4-10.4); Monocytes # 0.5 10^3/uL (0.2-0.9); Monocytes % 6.1 %; Neutrophils % 49.4 %; Nucleated Red Blood Cells % 0 %; Platelet Count 238 10^3/cmm (130-400); Red Blood Count 4.58 10^6/uL (4.1-5.3); Red Cell Distribution Width 14.9 % (12.1-15.1); White Blood Count 8.7 10^3/uL (4.0-10.0)
[2021-11-17 18:26] LABS: Alanine Aminotransferase 37 U/L (0-41); Albumin Level 4.4 g/dL (3.5-5.2); Alkaline Phosphatase 94 IU/L (40-130); Anion Gap 17.2 (5-19); Blood Urea Nitrogen 21 mg/dL (8-23); Calcium 9.5 mg/dL (8.5-10.5); Carbon Dioxide 24 mmol/L (22-29); Chloride 103 mmol/L (98-107); Globulin 3.2 g/dL (1.3-4.6); Glomerular Filtration Rate 76.2 mL/min (90-130); Glucose 164 mg/dL (65-115); Osmolality Calculated 297 mOsm/kg (285-295); Potassium 4.2 mmol/L (3.5-5.1); Sodium 140 mmol/L (136-145); Total Bilirubin 0.2 mg/dL (0.15-1.2); Total Protein 7.6 g/dL (6.6-8.7)
[2021-11-17 18:34] LABS: Aspartate Amino Transferase 5 U/L (0-40)
== END 2021-11-17 14:38 | disposition home or self-care (01) ==
LOC: LAB 14:38
PROVIDERS: PCP Family Medicine; Visit Provider Internal Medicine Medical Oncology
DX: N12 Tubulo-interstitial nephritis, not specified as acute or chronic (principal)
CPT/HCPCS: 80053; 85025

== ENCOUNTER 2021-11-18 08:01 | Outpatient (CLI) | payer MEDICARE, SELFPAY ==
--- NOTE | 2021-11-18 08:00 | XR_ITS ---
WS: [id number] XR KUB 03499 REASON FOR EXAM: STAGHORN CALCULUS FINDINGS: Large complex staghorn calculus within the left kidney. Maximum dimensions 3.9 x 4.8 cm. Additional 5 mm calculus in the lower pole of the left kidney. No calculi overlying the course of the ureters or bladder identified. No other significant abdominal or pelvic abnormality. XR/XR KUB 90260 IMPRESSION: Left renal calculi as above.
== END 2021-11-18 08:02 | disposition home or self-care (01) ==
PROVIDERS: PCP Family Medicine; Visit Provider Urology
DX: N20.0 Calculus of kidney (principal); N12 Tubulo-interstitial nephritis, not specified as acute or chronic
CPT/HCPCS: 74018; 81003; 99214

== ENCOUNTER 2021-11-24 13:24 | Outpatient (CLI) | payer MEDICARE, SELFPAY ==
[2021-11-24 14:33] LABS: Basophils # 0.1 10^3/uL (0.0-0.1); Basophils % 0.9 %; Eosinophils # 0.2 10^3/uL (0.0-0.8); Eosinophils % 2.7 %; Hematocrit 40.7 % (42.0-52.0); Hemoglobin 13.2 g/dL (11.7-16.6); Lymphocytes # 3.3 10^3/uL (0.8-4.8); Lymphocytes % 41.1 %; Mean Corpuscular HGB Conc 32.4 g/dL (30.0-36.0); Mean Corpuscular Hemoglobin 30.1 pg (28.0-34.0); Mean Corpuscular Volume 92.7 fl (80-94); Mean Platelet Volume 9.7 fL (7.4-10.4); Monocytes # 0.7 10^3/uL (0.2-0.9); Monocytes % 8.5 %; Neutrophils # 3.72 10^3/uL (1.8-7.7); Neutrophils % 46.1 %; Nucleated Red Blood Cells % 0 %; Platelet Count 259 10^3/cmm (130-400); Red Blood Count 4.39 10^6/uL (4.1-5.3); Red Cell Distribution Width 14.9 % (12.1-15.1); White Blood Count 8.1 10^3/uL (4.0-10.0)
[2021-11-24 15:21] LABS: Alanine Aminotransferase 13 U/L (0-41); Albumin Level 4.5 g/dL (3.5-5.2); Alkaline Phosphatase 78 IU/L (40-130); Anion Gap 16.2 (5-19); Aspartate Amino Transferase 22 U/L (0-40); Blood Urea Nitrogen 17 mg/dL (8-23); Calcium 9.5 mg/dL (8.5-10.5); Carbon Dioxide 23 mmol/L (22-29); Chloride 102 mmol/L (98-107); Globulin 2.6 g/dL (1.3-4.6); Glomerular Filtration Rate 86.1 mL/min (90-130); Glucose 151 mg/dL (65-115); Osmolality Calculated 288 mOsm/kg (285-295); Potassium 4.2 mmol/L (3.5-5.1); Sodium 137 mmol/L (136-145); Total Bilirubin 0.2 mg/dL (0.15-1.2); Total Protein 7.1 g/dL (6.6-8.7)
== END 2021-11-24 13:25 | disposition home or self-care (01) ==
LOC: LAB 13:25
PROVIDERS: PCP Family Medicine; Visit Provider Family Medicine
DX: N12 Tubulo-interstitial nephritis, not specified as acute or chronic (principal)
CPT/HCPCS: 80053; 85025

== ENCOUNTER 2021-12-01 13:25 | Outpatient (CLI) | payer MEDICARE, SELFPAY ==
[2021-12-01 13:43] LABS: Basophils # 0.1 10^3/uL (0.0-0.1); Basophils % 0.7 %; Eosinophils # 0.2 10^3/uL (0.0-0.8); Hemoglobin 12.7 g/dL (11.7-16.6); Lymphocytes # 2.7 10^3/uL (0.8-4.8); Lymphocytes % 38.1 %; Mean Corpuscular HGB Conc 32.6 g/dL (30.0-36.0); Mean Corpuscular Hemoglobin 30.9 pg (28.0-34.0); Mean Corpuscular Volume 94.9 fl (80-94); Mean Platelet Volume 10.2 fL (7.4-10.4); Monocytes # 0.6 10^3/uL (0.2-0.9); Monocytes % 8.8 %; Neutrophils # 3.48 10^3/uL (1.8-7.7); Neutrophils % 49.1 %; Nucleated Red Blood Cells % 0 %; Platelet Count 240 10^3/cmm (130-400); Red Blood Count 4.11 10^6/uL (4.1-5.3); Red Cell Distribution Width 15.1 % (12.1-15.1); White Blood Count 7.1 10^3/uL (4.0-10.0)
[2021-12-01 14:07] LABS: Alanine Aminotransferase 7 U/L (0-41); Albumin Level 4.1 g/dL (3.5-5.2); Alkaline Phosphatase 61 IU/L (40-130); Anion Gap 14.4 (5-19); Aspartate Amino Transferase 17 U/L (0-40); Blood Urea Nitrogen 12 mg/dL (8-23); Calcium 8.9 mg/dL (8.5-10.5); Carbon Dioxide 25 mmol/L (22-29); Chloride 104 mmol/L (98-107); Globulin 2.5 g/dL (1.3-4.6); Glomerular Filtration Rate 86.1 mL/min (90-130); Glucose 253 mg/dL (65-115); Osmolality Calculated 296 mOsm/kg (285-295); Potassium 4.4 mmol/L (3.5-5.1); Sodium 139 mmol/L (136-145); Total Bilirubin 0.2 mg/dL (0.15-1.2); Total Protein 6.6 g/dL (6.6-8.7)
== END 2021-12-01 13:26 | disposition home or self-care (01) ==
PROVIDERS: PCP Family Medicine; Visit Provider Family Medicine
DX: N12 Tubulo-interstitial nephritis, not specified as acute or chronic (principal)
CPT/HCPCS: 80053; 85025

== ENCOUNTER 2021-12-26 09:10 | Outpatient (CLI) | payer MEDICARE, SELFPAY ==
--- NOTE | 2021-12-26 09:17 | XR_ITS ---
WS: [id number] KUB, AP view, 12/26/2021 Clinical Data: Staghorn Calculus Comparison: KUB, 11/18/2021. Findings: The staghorn calculus overlying the left kidney has fragmented compared to the prior exam. There is a recording device overlying the right kidney. The small bowel and colon are not remarkable. There are no calcifications in the true pelvis. XR/XR KUB 37224 Impression: The left staghorn calculus is smaller and has fragmented compared to the previo us exam.
== END 2021-12-26 09:11 | disposition home or self-care (01) ==
LOC: RAD 09:12
PROVIDERS: PCP Family Medicine; Visit Provider Urology
DX: N20.0 Calculus of kidney (principal); R33.9 Retention of urine, unspecified
CPT/HCPCS: 74018; 81003; 99213

== ENCOUNTER 2021-12-31 07:41 | Emergency (ER) | payer MEDICARE, SELFPAY ==
[2021-12-31] VITALS (7 sets, daily range): BP systolic 126–158; BP diastolic 67–103; PULSE 87–122; RESP 14–24; TEMP 36.9; O2SAT 94–100; BMI 34.2
--- NOTE | 2021-12-31 07:43 | CT_ITS ---
WS: [id number] CT HEAD NONCONTRAST HISTORY: LOC TECHNIQUE: Contiguous axial imaging performed through the brain in 2.5 mm imaging. Bone and soft tiss ue windows. Sagittal and coronal reformats reviewed. All CT scans at [facility] use at least one of these dose optimization techniques: automated exposure control; mA and/or kV adjustment per pa tient size (includes targeted exams where dose is matched to clinical indication); or iterative recon struction. DLP: 1048.39 mGy.cm COMPARISON: None available. No acute intracranial hemorrhage, midline shift or mass effect. Mild atrophy. No midline shift. Prior lacunar infarct LEFT internal capsule. No sulcal effacement. N o edema. Ventricles: Normal size with no hydrocephalus. No inferior displacement of the cerebellar tonsils. Paranasal sinuses: As visualized are clear. Mastoid air cells: Well pneumatized. Calvarium and scalp: Skull is intact with no soft tissue edema or swelling. CT/CT head wo con* [id number] IMPRESSION: 1. No acute intracranial hemorrhage or edema. 2. Remote lacunar infarct LEFT internal capsule.
--- NOTE | 2021-12-31 08:05 | ED_ITS ---
HPI - Syncope General: Chief Complaint: Syncope Stated Complaint: SOB and Blackouts Time Seen by Provider: 12/31/21 07:42 Source: patient Mode of arrival: ambulatory Limitations: no limitations History of Present Illness: 61-year-old male presents to the emergency room with complaint of several near syncopal episodes related happen while he was in the shower. Patient has a history of a recent renal surgery for staghorn calculus that was excised. For the last 5 days he has not taken any of his medi cations he said he left his home and did not take anything with him he is an insulin-dependent diabetic and hypertensive is extremely hypertensive on arrival here. He denies any fever sweats chills no abdominal or chest pain. MD complaint: almost passed out Onset (ago): day(s) Prodromal symptoms: lightheaded Context: standing up (While in the shower) Injuries sustained associated with event: none Associated symptoms: Reports lightheadedness; Deny abdominal pain, chest pain, fever(s), headache(s), nausea, short of breath, vertigo or weakness Treatments prior to arrival: none Review of Systems Const: Denies: fever(s), chills, fatigue or malaise ENMT: Denies: throat pain, ear or mastoid pain, nasal discharge or nasal congestion Card: Reports: lightheadedness; Denies: chest pain, palpitations, edema or swelling of feet/ankles Resp: Denies: dyspnea, productive cough or non-productive cough GI: Denies: abdominal pain or nausea : Denies: flank pain, difficulty urinating, dysuria, urinary frequency or urinary urgency Musc: Denies: neck pain or back pain Skin/Breast: Denies: rash or pruritus Neuro: Denies: headache(s) or vertigo PFS ED PFSH: Medical History Diabetes Hypertension Major depressive disorder, recurrent, in partial remission Psychiatric care Surgical History History of ear, nose, and throat (ENT) surgery Mucocele Family History Mother , AT AGE 82 Cancer BREAST Father , ATE AGE 67 Diabetes Social History Smoking and tobacco status: never smoked Second hand smoke exposure: No Alcohol intake: never Marital status: Current occupational status: disabled History of recent travel: No Physical Exam Const: COMMON NORMALS: no acute distress GENERAL APPEARANCE: cooperative and comfortable ORIENTATION/CONSCIOUSNESS: Yes awake, Yes oriented to person, Yes oriented to place and Yes oriented to time HENMT: COMMON NORMALS: normocephalic, atraumatic and hearing grossly normal bilaterally HEAD & SCALP: normocephalic and atraumatic Resp: COMMON NORMALS: normal respiratory effort, No retractions, No use of accessory muscles and clear to auscultation bilaterally AUSCULTATION: clear to auscultation bilaterally Cardio: COMMON NORMALS: regular rate, regular rhythm and No murmurs present (Cardio) RATE: regular rate RHYTHM: regular rhythm GI: COMMON NORMALS: Soft to palpation and No hepatosplenomegaly present AUSCULTATION: Yes normoactive bowel sounds PALPATION: Yes Soft to palpation, No Tenderness to palpation present (GI), No Guarding due to palpation present (GI) and Yes No hepatosplenomegaly present Extremity: COMMON NORMALS: normal to inspection, capillary refill normal, no clubbing, cyanosis or edema, no calf tenderness and no pedal edema Neuro: SENSORIUM/ORIENTATION: Yes oriented to person, Yes oriented to place and Yes oriented to time Skin: COMMON NORMALS: no rashes or lesions noted GENERAL SKIN EXAM: no rashes or lesions noted Course Vital Signs: Vital signs: Vital Signs Temperature 98.4 F 12/31/21 07:52 Pulse Rate 89 12/31/21 11:40 Respiratory Rate 24 H 12/31/21 11:40 Blood Pressure 151/99 12/31/21 11:40 Pulse Oximetry 96 12/31/21 11:40 Oxygen Delivery Me thod 12/31/21 10:00 MDM - Syncope Medical Decision Making Feeling better at this point no further symptoms. Restart antibiotics. He has not been taking any of his medications from home encouraged him to get his regular home medicines and resume them follow-up with his primary care doctor within the next week. Lab Data : 12/31/21 08:15 12/31/21 08:[address] 12/31/21 07:43 IMPRESSION: 1. No acute intracranial hemorrhage or edema. 2. Remote lacunar infarct LEFT internal capsule. Laboratory Results WBC 8.1 10^3/uL (4.0-10.0) 12/31/21 08:15 RBC 4.27 10^6/uL (4.1-5.3) 12/31/21 08:15 Hgb 13.2 g/dL (11.7-16.6) 12/31/21 08:15 Hct 40.1 % (42.0-52.0) L 12/31/21 08:15 MCV 93.9 fl (80-94) 12/31/21 08:15 MCH 30.9 pg (28.0-34.0) 12/31/21 08:15 MCHC 32.9 g/dL (30.0-36.0) 12/31/21 08:15 RDW 14.7 % (12.1-15.1) 12/31/21 08:15 Plt Count 323 10^3/cmm (130-400) 12/31/21 08:15 MPV 9.6 fL (7.4-10.4) 12/31/21 08:15 Neut % (Auto) 41.9 % 12/31/21 08:15 Lymph % (Auto) 48.1 % 12/31/21 08:15 [place] % (Auto) 7.8 % 12/31/21 08:15 Eos % (Auto) 1.2 % 12/31/21 08:15 Baso % (Auto) 0.6 % 12/31/21 08:15 Neut # (Auto) 3.39 10^3/uL (1.8-7.7) 12/31/21 08:15 Lymph # (Auto) 3.9 10^3/uL (0.8-4.8) 12/31/21 08:15 [place] # (Auto) 0.6 10^3/uL (0.2-0.9) 12/31/21 08:15 Eos # (Auto) 0.1 10^3/uL (0.0-0.8) 12/31/21 08:15 Baso # (Auto) 0.1 10^3/uL (0.0-0.1) 12/31/21 08:15 Nucleated RBC % (auto) 0 % 12/31/21 08:15 Nucleated RBCs # 0.0 /100WBC 12/31/21 08:15 Sodium 136 mmol/L (136-145) 12/31/21 08:15 Potassium 4.5 mmol/L (3.5-5.1) 12/31/21 08:15 Chloride 102 mmol/L (98-107) 12/31/21 08:15 Carbon Dioxide 18 mmol/L (22-29) L 12/31/21 08:15 Anion Gap 20.5 (5-19) H 12/31/21 08:15 BUN 16 mg/dL (8-23) 12/31/21 08:15 Creatinine 1.4 mg/dL (0.7-1.2) H 12/31/21 08:15 GFR Calculation 51.7 mL/min (90-130) L 12/31/21 08:15 Glucose 182 mg/dL (65-115) H 12/31/21 08:15 POC Glucose 167 mg/dL (70-110) H 12/31/21 08:13 Calculated Osmolality 288 mOsm/kg (285-295) 12/31/21 08:15 Calcium 9.3 mg/dL (8.5-10.5) 12/31/21 08:15 Total Bilirubin 0.2 mg/dL (0.15-1.2) 12/31/21 08:15 AST 29 U/L (0-40) 12/31/21 08:15 ALT 38 U/L (0-41) 12/31/21 08:15 Alkaline Phosphatase 99 U/L (40-130) 12/31/21 08:15 Troponin T Baseline 11 ng/L (0-15) 12/31/21 08:15 Troponin T 120 Minute 10.08 ng/L (0-15) 12/31/21 10:14 Delta Troponin T -0.92 ABS# (0-10) L 12/31/21 10:14 Total Protein 7.8 g/dL (6.6-8.7) 12/31/21 08:15 Albumin 4.7 g/dL (3.5-5.2) 12/31/21 08:15 Globulin 3.1 g/dL (1.3-4.6) 12/31/21 08:15 Urine Color Yellow (Yellow) 12/31/21 08:59 Urine Appearance Clear (CLEAR) 12/31/21 08:59 Urine pH 5 (5-7) 12/31/21 08:59 Ur Specific [place] 1.025 (1.005-1.030) 12/31/21 08:59 Urine Protein 1+ (Negative) H 12/31/21 08:59 Urine Glucose (UA) Norm (Normal) 12/31/21 08:59 Urine Ketones Negative (Negative) 12/31/21 08:59 Urine Blood 2+ (Negative) H 12/31/21 08:59 Urine Nitrate Negative (Negative) 12/31/21 08:59 Urine Bilirubin Neg (Negative) 12/31/21 08:59 Urine Urobilinogen Norm mg/dL (Negative) 12/31/21 08:59 Ur Leukocyte Esterase Negative (Negative) 12/31/21 08:59 Urine RBC None /hpf (0-2) 12/31/21 08:59 Urine WBC 25-40 /hpf (0-5) H 12/31/21 08:59 Ur Squamous Epith Cells 0-4 /hpf (0-5) H 12/31/21 08:59 Amorphous Sediment Not Reportable 12/31/21 08:59 Urine Bacteria Trace /hpf (NONE) 12/31/21 08:59 Hyaline Casts 10-15 /lpf H 12/31/21 08:59 Discharge Plan Discharge Patient Disposition: Home Clinical Impression: Cystitis, Diabetes mellitus Condition: Stable Prescriptions: New levofloxacin 500 mg tablet 500 mg PO DAILY 7 Days Qty: 7 0RF Discontinued sulfamethoxazole-trimethoprim 800-160 mg tablet 1 tab PO BID Qty: 60 3RF No Action rosuvastatin 5 mg tablet 5 mg PO QAM lisinopril 30 mg tablet 30 mg PO QAM Jardiance 25 mg tablet 25 mg PO QAM insulin aspart U-100 [Novolog Flexpen U-100 Insulin] 100 unit/mL (3 mL) insulin pen 5 unit SUBCUT TID Rx Instructions: sliding scale tamsulosin [Flomax] 0.4 mg capsule 0.4 mg PO DAILY fexofenadine [Aidee Allergy] 180 mg tablet 180 mg PO DAILY PRN guaifenesin [Mucinex] 600 mg tablet extended release 12hr 600 mg PO Q12H PRN buspirone 5 mg tablet 5 mg PO TID Qty: 90 0RF venlafaxine 150 mg tablet extended release 24 hr 150 mg PO DAILY Qty: 30 0RF Rx Instructions: To be taken with 75 mg cap for total of 225 mg daily. venlafaxine [Effexor XR] 75 mg capsule,extended release 24hr 75 mg PO DAILY Qty: 30 0RF Rx Instructions: To be taken with 150 mg cap for total of 225 mg daily. levothyroxine 50 mcg tablet 50 mcg PO QAM metformin 500 mg tablet extended release 24 hr 1,000 mg PO BEDTIME Discharge Orders: Discharge ED (Routine); Ordered 12/31/21 Ordered By: Cristi Pineda Referrals: Lucian Ng MD [Primary Care Provider] - Discharge Diet: Usual diet Discharge Activity: Resume usual activity Patient Instructions: Opioid Safety Activity Restrictions/Additional Instructions: Resume your home medications. Restart antibiotics as prescribed above follow-up with your primary care doctor return if you have further problems. Coding Level of Care Code ED [employer] for [employer] Exam Detailed
--- NOTE | 2021-12-31 08:07 | ECG_ITS ---
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 Measurements Intervals [place] Rate: 106 P: 32 CT: 163 QRS: 17 QRSD: 82 T: 66 QT: 321 QTc: 427 Interpretive Statements SINUS TACHYCARDIA NONSPECIFIC T-WAVE ABNORMALITY No previous ECG available for comparison Electronically Signed On 12-31-2021 16:20:55 CDT by Nila Martinez M.D. [id number]
[2021-12-31 08:16] LABS: Glucose Point of Care 167 mg/dL (70-110)
[2021-12-31 08:30] LABS: Basophils # 0.1 10^3/uL (0.0-0.1); Basophils % 0.6 %; Eosinophils # 0.1 10^3/uL (0.0-0.8); Eosinophils % 1.2 %; Hematocrit 40.1 % (42.0-52.0); Hemoglobin 13.2 g/dL (11.7-16.6); Lymphocytes # 3.9 10^3/uL (0.8-4.8); Lymphocytes % 48.1 %; Mean Corpuscular HGB Conc 32.9 g/dL (30.0-36.0); Mean Corpuscular Hemoglobin 30.9 pg (28.0-34.0); Mean Corpuscular Volume 93.9 fl (80-94); Mean Platelet Volume 9.6 fL (7.4-10.4); Monocytes # 0.6 10^3/uL (0.2-0.9); Monocytes % 7.8 %; Neutrophils # 3.39 10^3/uL (1.8-7.7); Neutrophils % 41.9 %; Nucleated Red Blood Cells % 0 %; Platelet Count 323 10^3/cmm (130-400); Red Blood Count 4.27 10^6/uL (4.1-5.3); Red Cell Distribution Width 14.7 % (12.1-15.1); White Blood Count 8.1 10^3/uL (4.0-10.0)
[2021-12-31 08:51] LABS: Troponin(5th) Baseline 11 ng/L (0-15)
[2021-12-31 08:54] LABS: Alanine Aminotransferase 38 U/L (0-41); Albumin Level 4.7 g/dL (3.5-5.2); Alkaline Phosphatase 99 U/L (40-130); Blood Urea Nitrogen 16 mg/dL (8-23); Calcium 9.3 mg/dL (8.5-10.5); Carbon Dioxide 18 mmol/L (22-29); Chloride 102 mmol/L (98-107); Globulin 3.1 g/dL (1.3-4.6); Glomerular Filtration Rate 51.7 mL/min (90-130); Glucose 182 mg/dL (65-115); Osmolality Calculated 288 mOsm/kg (285-295); Sodium 136 mmol/L (136-145); Total Bilirubin 0.2 mg/dL (0.15-1.2); Total Protein 7.8 g/dL (6.6-8.7)
[2021-12-31 08:55] LABS: Anion Gap 20.5 (5-19); Aspartate Amino Transferase 29 U/L (0-40); Potassium 4.5 mmol/L (3.5-5.1)
--- NOTE | 2021-12-31 08:56 | PC.NURSE ---
PT PLACED ON CONTINUOUS NIBP, SPO2, AND CM
[2021-12-31] MEDS: sodium chloride 0.9% 500 ML 999 ML IV (09:07)
[2021-12-31 09:18] LABS: Add Urine Microscopic? YES; Bilirubin Urine Neg (Negative); Blood Urine 2+ (Negative); Glucose Urine UA Norm (Normal); Ketones Urine Negative (Negative); Leukocyte Esterase Urine Negative (Negative); Nitrate Urine Negative (Negative); Protein Urine 1+ (Negative); Specific Gravity, Urine 1.025 (1.005-1.030); Urine Appearance Clear (CLEAR); Urine Color Yellow (Yellow); Urobilinogen Urine Norm (Negative); pH Urine 5 (5-7)
[2021-12-31 09:31] LABS: Add Urine Culture? Yes; Bacteria Urine TRACE /hpf; Squamous Epithelial Cell Urine 0-4 /hpf (0-5); WBC Urine 25-40 /hpf (0-5)
--- NOTE | 2021-12-31 09:43 | ECG_ITS ---
[facility] Test Date: 2021-12-31 Pat Name: Catracho Dawson Department: Room: Gender: Male Foot Tender: : 1960 Requested By: Cristi Stone Order Number: [id number] Paula MD: Nila Martinez M.D. Measurements Intervals [place] Rate: 83 P: 17 MT: 170 QRS: 0 QRSD: 88 T: 56 QT: 354 QTc: 418 Interpretive Statements SINUS RHYTHM Compared to ECG 12/31/2021 08:07:15 Sinus tachycardia no longer present T-wave abnormality no longer present Electronically Signed On 12-31-2021 16:36:57 CDT by Nila Martinez M.D. [id number]
[2021-12-31 10:36] LABS: Troponin 5 2HR 10.08 ng/L (0-15)
[2021-12-31 11:16] LABS: Troponin 5 2HR Delta -0.92 ABS# (0-10)
== END 2021-12-31 11:44 | disposition home or self-care (01) ==
PROVIDERS: Emergency Provider Family Medicine; PCP Family Medicine
DX: E11.9 Type 2 diabetes mellitus without complications (principal); N30.90 Cystitis, unspecified without hematuria; Z79.4 Long term (current) use of insulin; Z79.84 Long term (current) use of oral hypoglycemic drugs; I10 Essential (primary) hypertension
CPT/HCPCS: 36415; 36416; 70450; 80053; 81001; 82962; 84484; 85025; 87086; 93005; 96360; 99285; J7040

== ENCOUNTER 2022-02-05 10:03 | Outpatient (CLI) | payer MEDICARE, SELFPAY | END 2022-02-05 10:04 | disposition home or self-care (01) | LOC: LAB 10:05 | PROVIDERS: PCP Family Medicine; Visit Provider Family Medicine | DX: R19.7 Diarrhea, unspecified (principal) | CPT/HCPCS: 83993; 87493; 87506 ==

== ENCOUNTER 2022-02-12 14:22 | Outpatient (CLI) | payer MEDICARE, SELFPAY ==
--- NOTE | 2022-02-12 14:29 | XR_ITS ---
WS: [id number] KUB, AP view, 02/12/2022 Clinical Data: Stones Comparison: KUB, 12/26/2021. Findings: The large fragments still overlie the left kidney. The right kidney shows no overlying calcifications . The pelvis is unremarkable. XR/XR KUB [id number] Impression: No change in large calcifications overlying left kidney.
== END 2022-02-12 14:23 | disposition home or self-care (01) ==
LOC: RAD 14:24
PROVIDERS: PCP Family Medicine; Visit Provider Urology
DX: N20.0 Calculus of kidney (principal); F33.2 Major depressive disorder, recurrent severe without psychotic features; E11.9 Type 2 diabetes mellitus without complications; I10 Essential (primary) hypertension; G62.9 Polyneuropathy, unspecified
CPT/HCPCS: 74018; 81003; 99214

== ENCOUNTER 2022-02-16 05:33 | Day surgery (SDC) | payer MEDICARE, SELFPAY ==
[2022-02-13 09:05] VITALS: BMI 33.4
[2022-02-16] VITALS (7 sets, daily range): BP systolic 122–174; BP diastolic 64–102; PULSE 71–84; RESP 18; TEMP 36.2–36.6; O2SAT 96–100
--- NOTE | 2022-02-16 05:50 | P.HPUD_ITS ---
Surgery/Procedure H&P Update DATE OF PROCEDURE: February 16, 2022 DATE H&P PERFORMED: 02/12/22 H&P UPDATE INFORMATION: I have reviewed H&P completed within last 30 days, I have examined patient prior to procedure, H&P to be scanned into chart and H&P is in [facility] EMR on date indicated CHANGES TO PREVIOUS DOCUMENTATION: KUB shows no significant change in the stones. No evidence of ureteral stones. Proceed as planned PLANNED PROCEDURE: Operation Date: 02/16/22 07:00 Proposed Procedures p Cystoscopy left ureteral sten, ESWL 86560,30474,N20.0(Not Applicable) - Hemant Fierro MD s Ureteral Stent Placement(Left) - Hemant Fierro MD s ESWL(Not Applicable) - Hemant Fierro MD
--- NOTE | 2022-02-16 06:00 | ECG_ITS ---
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 Measurements Intervals [place] Rate: 74 P: 23 TX: 177 QRS: 33 QRSD: 90 T: 74 QT: 384 QTc: 428 Interpretive Statements SINUS RHYTHM NONSPECIFIC T-WAVE ABNORMALITY Compared to ECG 12/31/2021 09:48:10 T-wave abnormality now present Electronically Signed On 02-16-2022 17:24:45 CDT by Paresh Velasquez M.D. [id number]
--- NOTE | 2022-02-16 06:00 | XR_ITS ---
WS: [id number] ABDOMEN KUB CLINICAL INFORMATION: Renal/ureteral calculi. COMPARISON: February 12, 2022 FINDINGS: No change in the bulky calculi overlying the LEFT kidney. No visualized ureteral calculi. No RIGHT re nal parenchymal calculi. XR/XR KUB [id number] Impression: No change in the bulky calculi overlying the LEFT kidney.
--- NOTE | 2022-02-16 06:42 | P.ANESASSM_ITS ---
Pre-Anesthetic Assessment Height/Weight: Height 1.73 m Weight 99.79 kg O2 Del Method 02/16/22 06:20 Preop Diagnosis: Multiple left renal calculi residual status post percutaneous nephrostolith Operation Date: 02/16/22 07:00 Proposed Procedures p Cystoscopy left ureteral sten, ESWL 88936,74251,N20.0(Not Applicable) - Hemant Fierro MD s Ureteral Stent Placement(Left) - Hemant Fierro MD s ESWL(Not Applicable) - Hemant Fierro MD Familial anesthetic complications: None Was Beta Lemuel taken within 24 hours: N/A Was Clonidine taken within 24 hours: N/A Last intake: Intake Last Liquid Date 02/16/22 Last Liquid Time 04:00 Last Solid Date 02/14/22 Last Solid Time 22:00 Social No alcohol and No tobacco Exam alert, oriented x 3, clear to auscultation bilaterally and regular rate & rhythm Airway Mallampati: Class III Dentition: full CV/HEM Hypertension Metabolic Diabetes Mellitus and Hyperlipidemia lyme's disease Neuropsych Depression Anesthetic Plan ASA status: 3 Anesthesia: General Risk of > 500 ml blood loss (7ml/kg in children): No Medications/Allergies Home Medications Medication Instructions Recorded Confirmed Last Taken Type lisinopril 30 mg tablet 30 mg PO QAM 01/23/21 02/13/22 02/15/22 History rosuvastatin 5 mg tablet 5 mg PO QAM 01/23/21 02/13/22 02/15/22 History empagliflozin 25 mg tablet 25 mg PO QAM 06/16/21 02/13/22 Unknown History (Jardiance) levothyroxine 50 mcg tablet 50 mcg PO QAM 11/05/21 02/13/22 02/15/22 History metformin 500 mg tablet,extended 1,000 mg PO BEDTIME 11/05/21 02/13/22 Unknown History release 24 hr fexofenadine 180 mg tablet 180 mg PO DAILY PRN Allergy 11/18/21 02/13/22 02/15/22 History (Aidee Allergy) Symptoms guaifenesin 600 mg tablet, 600 mg PO Q12H PRN Allergy Symptoms 11/18/21 02/13/22 02/15/22 History extended release 12 hr (Mucinex) insulin aspart U-100 100 unit/mL 5 unit SUBCUT TID 08/02/13/22 02/15/22 History (3 mL) subcutaneous pen (Novolog Flexpen U-100 Insulin aspart) tamsulosin 0.4 mg capsule (Flomax) 0.4 mg PO DAILY 12/26/21 02/13/22 02/15/22 History buspirone 5 mg tablet 5 mg PO TID #90 tabs 01/19/22 02/13/22 02/15/22 Rx venlafaxine 150 mg tablet,extended 150 mg PO DAILY #30 tabs 01/19/22 02/13/22 02/15/22 Rx release 24 hr venlafaxine 75 mg capsule,extended 75 mg PO DAILY #30 caps 01/19/22 02/13/22 02/15/22 Rx release 24 hr (Effexor XR) Allergies Allergy/AdvReac Type Severity Reaction Status Date / Time ceftriaxone Allergy Unknown ADR-Gastrointestinal Verified 02/12/22 15:27 Upset shellfish derived Allergy ALGY-Anaphy Verified 02/12/22 15:27 laxis [facility] Anesthesia Medical History (Updated 02/12/22 @ 17:00 by Hemant Fierro MD) Diabetes Hypertension Major depressive disorder, recurrent, in partial remission Psychiatric care Surgical History History of ear, nose, and throat (ENT) surgery Mucocele Family History Mother , AT AGE 82 Cancer BREAST Father , ATE AGE 67 Diabetes Social History Smoking and tobacco status: never smoked Second hand smoke exposure: No Smoking risk assessment/counseling performed?: No Alcohol intake: former Desire information about alcohol rehabilitation?: No Counseling given: No Desire information about substance/drug rehabilitation?: No Counseling given: No Marital status: Current occupational status: disabled History of recent travel: No Data Anesthesia Cardiac Studies: No Data to Display
[2022-02-16 06:44] LABS: Glucose Point of Care 132 mg/dL (70-110)
--- NOTE | 2022-02-16 06:48 | P.OP_ITS ---
Operative Report Date of procedure: February 16, 2022 Pre-op diagnosis: Multiple left renal calculi residual status post percutaneous nephrostolithotomy Post-op diagnosis: Multiple left renal calculi residual status post percutaneous nephrostolithotomy Procedure done: 1. Cystoscopy, left ureteral stent placement 2. Extracorporeal shockwave lithotripsy multiple left renal calculi Implants: Left ureteral stent Specimens removed/disposition: None Pathology: None Surgeon: Vadim Estimated blood loss: None Urine output: Not measured Complications: None Findings: Anesthesia: General Condition: Stable Disposition: PACU Intraoperative findings: * 7 Cambodian by 28 cm double-pigtail stent without string place * 2500 shocks administered to the stones with good change, see below * Changes noted: The cluster in the middle portion and lower collecting system were focused upon primarily and demonstrated significant change. No treatment to the more superior located stones in that the full complement of shocks were utilized as above Brief History: Catracho is a very pleasant 61-year-old white male recently diagnosed with a large almost complete left staghorn calculus. So far he is undergone a percutaneous nephrostolithotomy in [place] with clearance of most of the stone but still has multiple fragments remaining. We reviewed options including endoscopic retrograde or antegrade), ESWL or combination thereof. Elected is our first choice stent placement followed by ESWL. Procedure: After routine preoperative evaluation examination and obtaining of informed consent he was taken to the operating suite on 02/16/2022 where general anesthesia was administered without difficulty after appropriate timeout was performed, SCDs confirmed to be functioning, preoperative antibiotics administered, beta-edilberto protocol confirmed. Prepped and draped in usual sterile fashion in dorsolithotomy position paying careful attention to avoiding pressure points. 21 Cambodian cystoscope with 30 degree lens was introduced into the urethra meatus and advanced into the bladder without difficulty. No stones were seen in the bladder. A flexible tip guidewire was advanced up the left ureter curling in the area of the renal pelvis. A 7 Cambodian by 28 cm double-pigtail stent without string was easily advanced over the guidewire through the cystoscope into appropriate position as confirmed via fluoroscopy and cystoscopy. Bladder was drained. He was then placed in supine position paying careful attention to avoiding pressure points. Initially shock head was positioned posteriorly. The larger stone burden at the lower pole portion of the kidney was targeted first. Biplanar fluoroscopy was utilized for focus. Shockwave was initiated at a rate of 60 and intensity of 1 with advancement to as high as 8 over time. After about 300 shocks a several minute pause was conducted. Position was changed as indicated utilizing real-time fluoroscopic monitoring. Shock head position was switched to the anterior position after about 1200 shocks. Focus was good at that position as well. Procedure was completed after 2500 shocks. Stent was left indwelling. Awakened in the operating room and returned to PACU in stable condition. He tolerated procedure well without complication. PLANS: 1. Anticipate discharge from outpatient surgery 2. Follow-up in 2 weeks. KUB at that time.
[2022-02-16] MEDS: sodium chloride 0.9% 1,000 ML 30 ML IV (06:49)
[2022-02-16 06:53] LABS: Basophils # 0.1 10^3/uL (0.0-0.1); Basophils % 0.7 %; Eosinophils # 0.1 10^3/uL (0.0-0.8); Eosinophils % 1.1 %; Hematocrit 41.5 % (42.0-52.0); Lymphocytes # 3.3 10^3/uL (0.8-4.8); Lymphocytes % 39.2 %; Mean Corpuscular HGB Conc 33.7 g/dL (30.0-36.0); Mean Corpuscular Hemoglobin 31.4 pg (28.0-34.0); Monocytes # 0.7 10^3/uL (0.2-0.9); Monocytes % 7.7 %; Neutrophils # 4.26 10^3/uL (1.8-7.7); Neutrophils % 50.6 %; Nucleated Red Blood Cells % 0 %; Platelet Count 329 10^3/cmm (130-400); Red Blood Count 4.46 10^6/uL (4.1-5.3); Red Cell Distribution Width 14.9 % (12.1-15.1); White Blood Count 8.4 10^3/uL (4.0-10.0)
[2022-02-16] MEDS: levofloxacin-dextrose 5 % 500 MG/100 ML PREMIX 100 MG IV (06:55)
[2022-02-16 07:08] LABS: Alanine Aminotransferase 25 U/L (0-41); Albumin Level 4.5 g/dL (3.5-5.2); Alkaline Phosphatase 79 U/L (40-130); Anion Gap 16.3 (5-19); Aspartate Amino Transferase 20 U/L (0-40); Blood Urea Nitrogen 14 mg/dL (8-23); Calcium 9.5 mg/dL (8.5-10.5); Carbon Dioxide 21 mmol/L (22-29); Chloride 102 mmol/L (98-107); Glomerular Filtration Rate 68.3 mL/min (90-130); Glucose 127 mg/dL (65-115); Osmolality Calculated 282 mOsm/kg (285-295); Potassium 4.3 mmol/L (3.5-5.1); Sodium 135 mmol/L (136-145); Total Bilirubin 0.3 mg/dL (0.15-1.2); Total Protein 7.5 g/dL (6.6-8.7)
[2022-02-16] MEDS: HYDROcodone-acetaminophen 5-325 mg Tablet 1 TAB PO (08:48)
--- NOTE | 2022-02-16 15:02 | ANE.PACU2 ---
Inpatient post-anesthesia follow up: Airway intact: Yes Vital signs: Temperature 98 F Pulse Rate 72 Respiratory Rate 18 Blood Pressure 122/64 Pulse Oximetry 97 Oxygen Delivery Me thod Room Air Oxygen Flow Rate 6 Fraction of Inspir ed Oxygen Hydration adequate: Yes Nausea and vomiting: No Pain level: 1 Mental status: Baseline
== END 2022-02-16 09:21 | disposition home or self-care (01) ==
PROVIDERS: PCP Family Medicine; Visit Provider Urology
PROC: 0TJB8ZZ Inspection of Bladder, Via Natural or Artificial Opening Endoscopic (ICD-10-PCS; CPT 52000; principal; 2022-02-16 07:00)
PROC: (CPT 50605; 2022-02-16 07:00)
PROC: (CPT 50590; 2022-02-16 07:00)
DX: N20.0 Calculus of kidney (principal); I10 Essential (primary) hypertension; E11.9 Type 2 diabetes mellitus without complications; E78.5 Hyperlipidemia, unspecified; F32.A Depression, unspecified; Z79.4 Long term (current) use of insulin; Z79.84 Long term (current) use of oral hypoglycemic drugs
CPT/HCPCS: 50590; 52332; 36416; 36592; 74018; 80053; 82962; 85025; 93005; C2625; J1100; J1956; J2370; J2405; J2704; J2710; J3010; J3490; J7030

== ENCOUNTER 2022-03-03 15:28 | Outpatient (CLI) | payer MEDICARE, SELFPAY ==
--- NOTE | 2022-03-03 15:47 | XR_ITS ---
WS: [id number] KUB, AP view, 03/03/2022 Clinical Data: Stones Comparison: KUB, 02/16/2022 Findings: There is a left ureteral stent in good position. The large left renal calculi remain the same. No abnormal intraabdominal masses are seen. There is no dilatated small bowel or evidence of obstruct ion. XR/XR KUB [id number] Impression: 1. Left ureteral stent. 2. Left renal calculi.
== END 2022-03-03 15:29 | disposition home or self-care (01) ==
PROVIDERS: PCP Family Medicine; Visit Provider Urology
DX: N20.0 Calculus of kidney (principal)
CPT/HCPCS: 74018; 99024

== ENCOUNTER 2022-03-16 05:53 | Day surgery (SDC) | payer MEDICARE, SELFPAY ==
[2022-03-13 14:34] VITALS: BMI 32.6
[2022-03-16] VITALS (7 sets, daily range): BP systolic 119–158; BP diastolic 58–98; PULSE 76–85; RESP 12–18; TEMP 36.1–36.4; O2SAT 92–99
--- NOTE | 2022-03-16 05:20 | W.PM.OPSUD ---
Surgery/Procedure H&P Update DATE OF PROCEDURE: March 16, 2022 DATE H&P PERFORMED: 03/03/22 H&P UPDATE INFORMATION: I have reviewed H&P completed within last 30 days, I have examined patient prior to procedure, No changes to prior documentation and H&P is in [facility] EMR on date indicated CHANGES TO PREVIOUS DOCUMENTATION: No significant change in KUB since office visit last. There appears to be an accumulation of aggregate sand in the lower pole calyx. Definitely less in the interpolar areas PREOP DIAGNOSIS: Multiple left renal calculi residual status post percutaneous nephrostolith PLANNED PROCEDURE: Operation Date: 03/16/22 07:00 Proposed Procedures p extracorporeal shockwave lithotripsy 22846,N20.0(Not Applicable) - Hemant Fierro MD
--- NOTE | 2022-03-16 06:00 | XRR_ITS ---
PROCEDURE INFORMATION: Exam: XR Abdomen Exam date and time: 03/16/2022 6:05 AM Age: 61 years old Clinical indication: Abdominal pain; Flank; Left; Prior surgery; Surgery date: <1 month; Surgery type: Lt ureteral stent; Additional info: Preop left renal eswl TECHNIQUE: Imaging protocol: Radiologic exam of the abdomen. Views: Frontal supine view of the abdomen. 1 View. COMPARISON: CR XR KUB [id number] 03/03/2022 3:54 PM FINDINGS: Tubes, catheters and devices: Left double-J ureteral stent is seen with a un coiled left renal pelvis loop. Gastrointestinal tract: There is a non-obstructive bowel gas pattern. There is no abnormal dilatation of bowel loops. There is no pneumatosis or mass effect. There is no organomegaly. Intraperitoneal space: No definite free air on the supine view exam. Bones/joints: There are no acute osseous abnormalities noted. Soft tissues: No radiopaque foreign body. Unchanged left kidney upper pole, mid zone and lower pole multiple calculi are seen ranging from 0.7 to 1.3 cm in size (at least 6). No definite right renal calculi are seen. XR/XR KUB [id number] IMPRESSION: Left intrarenal calculi, as noted above. Left double-J ureteral stent.
[2022-03-16] MEDS: sodium chloride 0.9% 1,000 ML 30 ML IV (06:40)
[2022-03-16 06:45] LABS: Glucose Point of Care 119 mg/dL (70-110)
--- NOTE | 2022-03-16 06:45 | ANES.PREANE2 ---
Pre-Anesthetic Assessment Height/Weight: Height 1.73 m Weight 97.522 kg O2 Del Method 03/16/22 06:41 Preop Diagnosis: Residual left renal calculi fragments Operation Date: 03/16/22 07:00 Proposed Procedures p extracorporeal shockwave lithotripsy 25369,N20.0(Not Applicable) - Hemant Fierro MD Familial anesthetic complications: None Was Beta Lemuel taken within 24 hours: N/A Was Clonidine taken within 24 hours: N/A Last intake: Intake Last Liquid Date 03/15/22 Last Liquid Time 22:00 Last Solid Date 03/14/22 Last Solid Time 20:00 Social No alcohol and No tobacco Exam alert, oriented x 3, clear to auscultation bilaterally and regular rate & rhythm Airway Mallampati: Class IV Dentition: other (implants) Pulmonary Sleep Apnea CV/HEM Hypertension Metabolic Diabetes Mellitus, Hyperlipidemia and Morbid Obesity [facility] lyme's disease Anesthetic Plan ASA status: 3 Anesthesia: General Risk of > 500 ml blood loss (7ml/kg in children): No Medications/Allergies Home Medications Medication Instructions Recorded Confirmed Last Taken Type lisinopril 30 mg tablet 30 mg PO QAM 01/23/21 03/13/22 03/13/22 08:00 History rosuvastatin 5 mg tablet 5 mg PO QAM 01/23/21 03/13/22 03/13/22 08:00 History empagliflozin 25 mg tablet 25 mg PO TID 06/16/21 03/13/22 03/13/22 12:00 History (Jardiance) levothyroxine 50 mcg tablet 50 mcg PO QAM 11/05/21 03/13/22 03/13/22 08:00 History metformin 500 mg tablet,extended 1,000 mg PO BEDTIME 11/05/21 03/13/22 01/15/22 History release 24 hr fexofenadine 180 mg tablet 180 mg PO DAILY PRN Allergy 11/18/21 03/13/22 02/15/22 History (Aidee Allergy) Symptoms guaifenesin 600 mg tablet, 600 mg PO Q12H PRN Allergy Symptoms 11/18/21 03/13/22 02/15/22 History extended release 12 hr (Mucinex) insulin aspart U-100 100 unit/mL 5 unit SUBCUT TID 12/26/21 03/13/22 03/13/22 08:00 History (3 mL) subcutaneous pen (Novolog Flexpen U-100 Insulin aspart) tamsulosin 0.4 mg capsule (Flomax) 0.4 mg PO DAILY 12/26/21 03/13/22 03/12/22 20:00 History buspirone 5 mg tablet 5 mg PO TID #90 tabs 01/19/22 03/13/22 03/13/22 12:00 Rx venlafaxine 150 mg tablet,extended 150 mg PO DAILY #30 tabs 01/19/22 03/13/22 03/13/22 08:00 Rx release 24 hr venlafaxine 75 mg capsule,extended 75 mg PO DAILY #30 caps 01/19/22 03/13/22 03/13/22 08:00 Rx release 24 hr (Effexor XR) hydrocodone 5 mg-acetaminophen 325 1 tab PO Q8H PRN pain #15 tabs 02/16/22 03/13/22 Unknown Rx mg tablet Allergies Allergy/AdvReac Type Severity Reaction Status Date / Time ceftriaxone Allergy Unknown ADR-Gastrointestinal Verified 03/13/22 14:29 Upset shellfish derived Allergy ALGY-Anaphy Verified 03/13/22 14:29 laxis Current Medications Generic Name Dose Route Start Last Admin Trade Name Freq PRN Reason Stop Dose Admin Sodium Chloride 1,000 mls @ 30 mls/hr 03/16/22 06:00 03/16/22 06:40 Sodium Chloride 0.9% IV 03/17/22 05:59 30 mls/hr .Q24H NAE Administration PFSH Anesthesia Medical History Diabetes Hypertension Major depressive disorder, recurrent, in partial remission Psychiatric care Surgical History History of ear, nose, and throat (ENT) surgery Mucocele Family History Mother , AT AGE 82 Cancer BREAST Father , ATE AGE 67 Diabetes Social History Smoking and tobacco status: never smoked Second hand smoke exposure: No Smoking risk assessment/counseling performed?: No Alcohol intake: former Desire information about alcohol rehabilitation?: No Counseling given: No Desire information about substance/drug rehabilitation?: No Counseling given: No Marital status: Current occupational status: disabled History of recent travel: No Data Anesthesia Cardiac Studies: No Data to Display
[2022-03-16] MEDS: levofloxacin-dextrose 5 % 500 MG/100 ML PREMIX 100 MG IV (07:10)
--- NOTE | 2022-03-16 08:15 | P.OP_ITS ---
Operative Report Date of procedure: March 16, 2022 Pre-op diagnosis: Residual left renal calculi fragments Post-op diagnosis: Residual left renal calculi fragments Procedure done: 1. Extracorporeal shockwave lithotripsy, right renal residual calculus fragments Implants: None Specimens removed/disposition: None Pathology: None Surgeon: Vadim Advertising Production Manager: Heather: Lithotripsy ct scan technician Estimated blood loss: None Urine output: Not measured Complications: None Findings: Anesthesia: General Condition: Stable Disposition: PACU Intraoperative findings: * Good focus on residual stones * 2500 shocks administered with good change Brief History: Catracho is a very pleasant 61-year-old white male status post percutaneous nephrostolithotomy for large staghorn calculus with some residual fragments remaining. Fairly substantial volume at that. He has undergone ESWL as an adjunct therapy with improvement in overall stone burden but still substantial volume remaining. Back now for repeat ESWL with the understanding that there would probably still be more requirements following this given the stone burden. We have reviewed endoscopic options both antegrade and retrograde. Procedure: After routine preoperative evaluation examination and obtaining informed consent he was taken to the operating suite on 03/16/2022 where general anesthesia was administered without difficulty after appropriate timeout was performed, SCDs confirmed to be functioning, preoperative antibiotics administered, beta-edilberto protocol confirmed. Positioned in supine position on the [place] unit such that the stone was located at the focal point utilizing biplanar fluoroscopy. Shock head was positioned posteriorly. Shockwave was initiated low intensity advanced to higher intensity as the procedure p rogressed. After approximately 300 shocks a several minute pause was conducted. Rate of 60 maintained throughout the whole procedure. All areas were calcifications were noted were painted with ESWL. Change was noted He tolerated procedure well without complications and was awakened in the operating room and returned to the recovery room in stable condition. PLANS: 1. Follow-up in about 3 weeks with a KUB for further planning or stent removal 2. Anticipate discharge from outpatient surgery today
--- NOTE | 2022-03-16 08:26 | P.PCN_ITS ---
PACU note Narrative: VSS, Good respiratory effort, report to COMPUTER APPLICATIONS DEVELOPER Exam: awake
--- NOTE | 2022-03-16 08:26 | PM.PACU ---
PACU note Narrative: VSS, Good respiratory effort, report to MANAGER SUPPORT Exam: awake
--- NOTE | 2022-03-16 13:22 | ANE.PACU2 ---
Inpatient post-anesthesia follow up: Airway intact: Yes Vital signs: Temperature 97.0 F Pulse Rate 79 Respiratory Rate 18 Blood Pressure 132/79 Pulse Oximetry 95 Oxygen Delivery Me thod Room Air Oxygen Flow Rate Fraction of Inspir ed Oxygen Hydration adequate: Yes Nausea and vomiting: No Pain level: 1 Mental status: Baseline
== END 2022-03-16 09:20 | disposition home or self-care (01) ==
PROVIDERS: PCP Family Medicine; Visit Provider Urology
PROC: (CPT 50590; principal; 2022-03-16 07:00)
DX: N20.0 Calculus of kidney (principal); G47.30 Sleep apnea, unspecified; I10 Essential (primary) hypertension; E11.9 Type 2 diabetes mellitus without complications; E78.5 Hyperlipidemia, unspecified; E66.01 Morbid (severe) obesity due to excess calories; Z68.32 Body mass index [BMI] 32.0-32.9, adult; Z79.84 Long term (current) use of oral hypoglycemic drugs; Z79.4 Long term (current) use of insulin
CPT/HCPCS: 50590; 36416; 74018; 82962; J1100; J1956; J2370; J2405; J2704; J2710; J3010; J3490; J7030

== ENCOUNTER 2022-04-07 07:12 | Outpatient (CLI) | payer MEDICARE, SELFPAY ==
--- NOTE | 2022-04-07 07:37 | XR_ITS ---
WS: [id number] EXAMINATION: XR KUB [id number] REASON FOR EXAM: STONES COMPARISON: 03/16/2022 ORDER DATE: 04/07/2022 7:45 AM FINDINGS: There is a nonspecific colonic gas pattern with scattered fecal content and gas. There is no sign of significant small bowel dilation. The presence of numerous lower pole calculi are seen ranging from 7 to 13 mm in size in the left kidney. The double-J ureteral stent remains in place and unchanged fro m previous. XR/XR KUB [id number] IMPRESSION: No change noted from the previous exam.
== END 2022-04-07 07:13 | disposition home or self-care (01) ==
PROVIDERS: PCP Family Medicine; Visit Provider Urology
DX: N20.0 Calculus of kidney (principal)
CPT/HCPCS: 74018; 81003; 99024

== ENCOUNTER 2022-04-13 06:00 | Day surgery (SDC) | payer MEDICARE, SELFPAY ==
[2022-04-13] VITALS (7 sets, daily range): BP systolic 123–148; BP diastolic 59–102; PULSE 80–90; RESP 11–18; TEMP 36.1–36.5; O2SAT 92–99
--- NOTE | 2022-04-13 06:05 | XR_ITS ---
WS: [id number] KUB, AP view, 04/13/2022 Clinical Data: Preop ureteroscopy Comparison: KUB, 04/07/2022. Findings: No abnormal intraabdominal masses are seen. There is no dilatated small bowel or evidence of obstruct ion. There is a left ureteral stent in good position. There are multiple left renal calculi unchanged. The right kidney is normal. The bowel gas pattern is unremarkable. XR/XR KUB [id number] Impression: No change from prior exam.
[2022-04-13 06:35] LABS: Glucose Point of Care 139 mg/dL (70-110)
[2022-04-13] MEDS: sodium chloride 0.9% 1,000 ML 30 ML IV (06:36)
--- NOTE | 2022-04-13 06:38 | ANES.PREANE2 ---
Pre-Anesthetic Assessment Height/Weight: Height 1.73 m Weight 99.79 kg Temp Pulse Resp BP Pulse Ox O2 Del Method 97.2 F L 90 18 132/102 98 04/13/22 06:26 04/13/22 06:26 04/13/22 06:26 04/13/22 06:26 04/13/22 06:26 04/13/22 06:27 Preop Diagnosis: Residual left renal calculi/fragments Operation Date: 04/13/22 07:00 Proposed Procedures p Cystoscopy left, Retrograde, ureteroscopy laser stent [id number], [id number], [id number] modifier 26,N20.0(Not Applicable) - Hemant Fierro MD s Retrograde Pyelogram(Left) - MD pao Hickman Ureteroscopy(Left) - MD pao Hickman Laser Lithotripsy(Left) - MD pao Hickman Ureteral Stent Placement(Left) - Hemant Fierro MD Familial anesthetic complications: None Was Beta Lemuel taken within 24 hours: N/A Was Clonidine taken within 24 hours: N/A Last intake: Intake Last Liquid Date 04/12/22 Last Liquid Time 21:00 Last Solid Date 04/12/22 Last Solid Time 21:00 Social No alcohol and No tobacco Exam alert, oriented x 3, clear to auscultation bilaterally and regular rate & rhythm Airway Mallampati: Class III Dentition: other (implants) Pulmonary Sleep Apnea CV/HEM Hypertension Metabolic Diabetes Mellitus and Hyperlipidemia [facility] [place] Anesthetic Plan ASA status: 3 Anesthesia: General Risk of > 500 ml blood loss (7ml/kg in children): No Medications/Allergies Home Medications Medication Instructions Recorded Confirmed Last Taken Type lisinopril 30 mg tablet 30 mg PO QAM 01/23/21 04/13/22 04/12/22 History rosuvastatin 5 mg tablet 5 mg PO QAM 01/23/21 04/13/22 04/12/22 History empagliflozin 25 mg tablet 25 mg PO TID 06/16/21 04/13/22 03/13/22 12:00 History (Jardiance) levothyroxine 50 mcg tablet 50 mcg PO QAM 11/05/21 04/13/22 04/12/22 History fexofenadine 180 mg tablet 180 mg PO DAILY PRN Allergy 11/18/21 04/13/22 02/15/22 History (Aidee Allergy) Symptoms guaifenesin 600 mg tablet, 600 mg PO Q12H PRN Allergy Symptoms 11/18/21 04/13/22 02/15/22 History extended release 12 hr (Mucinex) insulin aspart U-100 100 unit/mL 5 unit SUBCUT TID 12/26/21 04/13/22 04/12/22 History (3 mL) subcutaneous pen (Novolog Flexpen U-100 Insulin aspart) tamsulosin 0.4 mg capsule (Flomax) 0.4 mg PO DAILY 12/26/21 04/13/22 04/11/22 History buspirone 5 mg tablet 5 mg PO TID #90 tabs 01/19/22 04/13/22 04/12/22 Rx venlafaxine 150 mg tablet,extended 150 mg PO DAILY #30 tabs 01/19/22 04/13/22 04/12/22 Rx release 24 hr venlafaxine 75 mg capsule,extended 75 mg PO DAILY #30 caps 01/19/22 04/13/22 04/12/22 Rx release 24 hr (Effexor XR) hydrocodone 5 mg-acetaminophen 325 1 tab PO Q8H PRN pain #15 tabs 02/16/22 04/13/22 04/12/22 Rx mg tablet Allergies Allergy/AdvReac Type Severity Reaction Status Date / Time ceftriaxone Allergy Unknown ADR-Gastrointestinal Verified 04/07/22 08:12 Upset shellfish derived Allergy ALGY-Anaphy Verified 04/07/22 08:12 laxis Current Medications Generic Name Dose Route Start Last Admin Trade Name Freq PRN Reason Stop Dose Admin Sodium Chloride 1,000 mls @ 30 mls/hr 04/13/22 06:15 04/13/22 06:36 Sodium Chloride 0.9% IV 04/14/22 06:14 30 mls/hr .Q24H NAE Administration PFSH Anesthesia Medical History Diabetes Hypertension Major depressive disorder, recurrent, in partial remission Psychiatric care Surgical History History of ear, nose, and throat (ENT) surgery Mucocele Family History Mother , AT AGE 82 Cancer BREAST Father , ATE AGE 67 Diabetes Social History Smoking and tobacco status: never smoked Second hand smoke exposure: No Smoking risk assessment/counseling performed?: No Alcohol intake: former Desire information about alcohol rehabilitation?: No Counseling given: No Desire information about substance/drug rehabilitation?: No Counseling given: No Marital status: Current occupational status: disabled History of recent travel: No Data Anesthesia Cardiac Studies: No Data to Display
[2022-04-13 06:46] LABS: Basophils # 0.1 10^3/uL (0.0-0.1); Eosinophils # 0.3 10^3/uL (0.0-0.8); Eosinophils % 2.8 %; Hematocrit 44.8 % (42.0-52.0); Lymphocytes # 3.2 10^3/uL (0.8-4.8); Lymphocytes % 33.8 %; Mean Corpuscular HGB Conc 33.5 g/dL (30.0-36.0); Mean Corpuscular Hemoglobin 30.4 pg (28.0-34.0); Mean Corpuscular Volume 90.9 fl (80-94); Mean Platelet Volume 9.1 fL (7.4-10.4); Monocytes # 0.6 10^3/uL (0.2-0.9); Neutrophils # 5.21 10^3/uL (1.8-7.7); Nucleated Red Blood Cells % 0 %; Platelet Count 336 10^3/cmm (130-400); Red Blood Count 4.93 10^6/uL (4.1-5.3); Red Cell Distribution Width 13.6 % (12.1-15.1); White Blood Count 9.3 10^3/uL (4.0-10.0)
[2022-04-13 06:58] LABS: Anion Gap 17.1 (5-19); Blood Urea Nitrogen 15 mg/dL (8-23); Calcium 9.7 mg/dL (8.5-10.5); Carbon Dioxide 22 mmol/L (22-29); Chloride 99 mmol/L (98-107); Glomerular Filtration Rate 68.3 mL/min (90-130); Glucose 146 mg/dL (65-115); Osmolality Calculated 281 mOsm/kg (285-295); Potassium 4.1 mmol/L (3.5-5.1); Sodium 134 mmol/L (136-145)
[2022-04-13] MEDS: levofloxacin-dextrose 5 % 500 MG/100 ML PREMIX 100 MG IV (07:00)
--- NOTE | 2022-04-13 07:01 | W.PM.OPSUD ---
Surgery/Procedure H&P Update DATE OF PROCEDURE: April 13, 2022 DATE H&P PERFORMED: 04/07/22 H&P UPDATE INFORMATION: I have reviewed H&P completed within last 30 days, I have examined patient prior to procedure, No changes to prior documentation and H&P to be scanned into chart CHANGES TO PREVIOUS DOCUMENTATION: No change on KUB PREOP DIAGNOSIS: Residual left renal calculi/fragments PLANNED PROCEDURE: Operation Date: 04/13/22 07:00 Proposed Procedures p Cystoscopy left, Retrograde, ureteroscopy laser stent [id number], [id number], [id number] modifier 26,N20.0(Not Applicable) - Hemant Fierro MD s Retrograde Pyelogram(Left) - MD pao Hickman Ureteroscopy(Left) - MD pao Hickman Laser Lithotripsy(Left) - MD pao Hickman Ureteral Stent Placement(Left) - Hemant Fierro MD
--- NOTE | 2022-04-13 07:06 | PM.OP ---
Operative Report Date of procedure: April 13, 2022 Pre-op diagnosis: Residual left renal calculi/fragments Post-op diagnosis: Residual left renal calculi/fragments Procedure done: 1. Cystoscopy, remove left ureteral stent, LEFT retrograde 2. Flexible ureteral renoscopy, left with laser lithotripsy 3. Replacement left ureteral stent Specimens removed/disposition: Stone fragments Pathology: Stone fragments Surgeon: Vadim Estimated blood loss: Minimal Urine output: Not measured Complications: None Brief History: Mr. Dawson is a very pleasant 61-year-old white male who had a large staghorn calculus on the left who underwent percutaneous nephrostolithotomy at the [facility] with partial clearance He had a significant amount of stone burden that remained and was offered the option for repeat percutaneous nephrostolithotomy, retrograde endoscopic laser lithotripsy versus ESWL as his next step in his chosen to date ESWL. He has had 2 treatments with significant improvement but not clearance. It appears that there is a lot of sediment remaining in gravity dependent lower pole calyces. Ultimately we elected his next approach to be ureterorenoscopy with laser lithotripsy as needed to try to clear the remaining fragments Procedure: After routine preoperative evaluation examination and obtaining of informed consent he was taken to the operating suite on 04/13/2022 where general anesthesia was administered without difficulty after appropriate timeout was performed, SCDs confirmed to be functioning, preoperative antibiotics administered, beta-edilberto protocol confirmed. Prepped and draped in usual sterile fashion in dorsolithotomy position paying careful attention to avoiding pressure points. 21 Macanese cystoscope with 30 degree lens was introduced into the urethra meatus and advanced into the bladder without difficulty. A flexible tip guidewire was then advanced up the left ureter next to the stent. The stent was grasped with grasping forceps and easily withdrawn under fluoroscopic monitoring with no difficulty A second guidewire was passed and the flexible ureterorenoscope was passed over the guidewire easily up the left ureter into the renal pelvis. Contrast was instilled through the scope for retrograde ureteropyelogram demonstrating: Some dilation of the pyelocalyceal system. There was filling of all the calyces that had stone fragments. No other gross abnormalities The calyces were inspected. Findings included: There were some stones located in the anterior midpole calyx, and additional stones or could be easily identified in another midpole calyx and some in the upper pole calyx. The 2 areas in the lower pole where calcification was seen on his previous films could not be accessed even with direct and indirect retroflexion of the scope. A second guidewire was passed through the flexible ureteroscope and the scope was removed. A 54 cm ureteral access sheath was advanced over the working guidewire (the first had been secured to the drapes as a safety wire) up to the renal pelvis. The scope was then repassed through the sheath without difficulty. Attention was then directed to the stones that were easily accessible. Stones in one of the midpole calyces were easily fragmented into mostly sand. The upper pole stone cluster was then further fragmented into sand. The other midpole calyceal stone cluster was more difficult access but eventually it was completely treated as well with laser lithotripsy. All the remainder of any of the areas treated were mostly sand and grit. A good deal of this flushed out through the sheath. The laser fiber was then removed and multiple attempts at manipulating the scope were made to try to visualize the lower pole clusters of stones but again were unsuccessful. Eventually that was abandoned. And N-Compass basket was utilized to remove some of the fragments but they were very small and difficult to secure the basket again most of it was flushed or easily passable. The scope and sheath were removed together, cystoscope backloaded over the safety wire, and a 6 Macanese by 28 cm double-pigtail stent was advanced over the guidewire through the cystoscope into appropriate position as confirmed via fluoroscopy and cystoscopy. The stent was confirmed to be draining. Sand sized were flushed from the bladder. Bladder was drained and the procedure was completed. He tolerated procedure well without complications and was awakened in the operating room and returned to the recovery room in stable condition. PLANS: 1. Anticipate discharge for outpatient surgery 2. Follow-up in approximately 1 week for KUB and likely cystoscopy stent removal 3. We will review options which would include observation, repeat percutaneous approach, repeat ESWL to the stone clusters that remain.
[2022-04-13] MEDS: lidocaine 2% Urojet 20 mL TOPICAL (07:32)
--- NOTE | 2022-04-13 14:26 | ANE.PACU2 ---
Inpatient post-anesthesia follow up: Airway intact: Yes Vital signs: Temperature 97.2 F Pulse Rate 80 Respiratory Rate 18 Blood Pressure 127/59 Pulse Oximetry 98 Oxygen Delivery Me thod Room Air Oxygen Flow Rate 6 Fraction of Inspir ed Oxygen Hydration adequate: Yes Nausea and vomiting: No Pain level: 1 Mental status: Baseline
[2022-04-16 13:15] LABS: Stone Source LEFT URETER
== END 2022-04-13 09:47 | disposition home or self-care (01) ==
PROVIDERS: Anesthesiology; PCP Family Medicine; Visit Provider Urology
PROC: 0TJB8ZZ Inspection of Bladder, Via Natural or Artificial Opening Endoscopic (ICD-10-PCS; CPT 52000; principal; 2022-04-13 07:00)
PROC: (CPT 74420; 2022-04-13 07:00)
PROC: 0TJ98ZZ Inspection of Ureter, Via Natural or Artificial Opening Endoscopic (ICD-10-PCS; CPT 52351; 2022-04-13 07:00)
PROC: (CPT 52356; 2022-04-13 07:00)
PROC: (CPT 50605; 2022-04-13 07:00)
DX: N20.0 Calculus of kidney (principal); G47.30 Sleep apnea, unspecified; I10 Essential (primary) hypertension; E11.9 Type 2 diabetes mellitus without complications; E78.5 Hyperlipidemia, unspecified
CPT/HCPCS: 52356; 36416; 74018; 76000; 80048; 82365; 82962; 85025; 88300; J1100; J1956; J2370; J2405; J2704; J2710; J3010; J3490; J7030

== ENCOUNTER 2022-04-29 11:10 | Outpatient (CLI) | payer MEDICARE, SELFPAY ==
--- NOTE | 2022-04-29 11:23 | XR_ITS ---
WS: [id number] KUB, AP view, 04/29/2022 Clinical Data: STONES Comparison: KUB, 04/13/2022 Findings: The left ureteral stent remains in good position. There is a 1.2 cm calcification overlying the infer ior pole of the left kidney. The smaller left renal calculi have diminished in number. No right renal calculi are seen. XR/XR KUB [id number] Impression: 1. Left ureteral stent in good position. 2. No change in 1.2 cm inferior pole left renal calculus but decrease in number of smaller left renal calculi
== END 2022-04-29 11:11 | disposition home or self-care (01) ==
PROVIDERS: PCP Family Medicine; Visit Provider Urology
DX: N20.0 Calculus of kidney (principal)
CPT/HCPCS: 52310; 74018; 81003

== ENCOUNTER 2022-07-21 13:16 | Outpatient (CLI) | payer MEDICARE, SELFPAY ==
--- NOTE | 2022-07-21 13:30 | XR_ITS ---
WS: [id number] EXAMINATION: XR KUB [id number] REASON FOR EXAM: Staghorn Calculus COMPARISON: 04/29/2022 ORDER DATE: 07/21/2022 1:31 PM FINDINGS: The left ureteral stent has been removed. There is a 1.2 cm calcification overlying the inferior pole of the left kidney. Any smaller left renal calculi are obscured by overlying colon gas. No right renal calculi are seen. Increased degenerative changes noted at L5-S1. XR/XR KUB [id number] Impression: 1. Left ureteral stent removed. 2. No change in 1.2 cm inferior pole left renal calculus
== END 2022-07-21 13:17 | disposition home or self-care (01) ==
LOC: RAD 13:23
PROVIDERS: PCP Family Medicine; Visit Provider Urology
DX: N20.0 Calculus of kidney (principal); N40.1 Benign prostatic hyperplasia with lower urinary tract symptoms; N13.8 Other obstructive and reflux uropathy
CPT/HCPCS: 74018; 81003; 99213

== ENCOUNTER 2022-10-21 20:00 | Outpatient (CLI) | payer MEDICARE, SELFPAY | END 2022-10-21 20:01 | disposition home or self-care (01) | LOC: SLEEP 10-22 05:50 | PROVIDERS: PCP Family Medicine; Visit Provider Family Medicine | DX: G47.33 Obstructive sleep apnea (adult) (pediatric) (principal) | CPT/HCPCS: 95811 ==

== ENCOUNTER 2023-06-13 11:41 | Emergency (ER) | payer MEDICARE, SELFPAY ==
[2023-06-13 11:50] VITALS: BP 145/87; PULSE 74; RESP 12; TEMP 36.7; O2SAT 100; BMI 32.5
--- NOTE | 2023-06-13 13:22 | XRR_ITS ---
PROCEDURE INFORMATION: Exam: XR Left Hand Exam date and time: 06/13/2023 1:36 PM Age: 63 years old Clinical indication: Finger(s); Left; Patient HX: Caught middle finger in the door handle painful to move and has limited rom; Additional info: Middle finger injury TECHNIQUE: Imaging protocol: Radiologic exam of the left hand. Views: 3 or more views. COMPARISON: No relevant prior studies available. FINDINGS: Bones/joints: No fracture or dislocation. Soft tissues: No acute findings. XR/XR hand LT min 3V* [id number] IMPRESSION: No bony injury.
--- NOTE | 2023-06-13 13:27 | ED_ITS ---
HPI - Extremity Problem General: Chief complaint: Extremity Injury, Upper Stated complaint: left middle finger pain Time Seen by Provider: 06/13/23 13:21 History of Present Illness: 63-year-old male patient comes in today with injury to the left middle finger. On exam patient has tenderness to the PIP joint with decreased range of motion of the PIP joint. Cap refill is intact. Sensation is intact. Review of Systems General: Reports: 10 or more systems reviewed and unremarkable except in HPI and below Musc: Reports: extremity pain PFSH ED PFSH: Medical History (Updated 06/13/23 @ 13:54 by LOY Fontaine) Hypertension Diabetes Major depressive disorder, recurrent, in partial remission Psychiatric care Surgical History History of ear, nose, and throat (ENT) surgery Mucocele Family History Mother , AT AGE 82 Cancer BREAST Father , ATE AGE 67 Diabetes Social History Smoking and tobacco/nicotine status: never used tobacco/nicotine Second hand smoke exposure: No Alcohol intake: former Substance/Drug Use: never Marital status: Current occupational status: disabled Physical Exam Const: COMMON NORMALS: alert HENMT: COMMON NORMALS: normocephalic HEAD & SCALP: normocephalic Neck/C-Spine: COMMON NORMALS: full ROM Resp: COMMON NORMALS: normal respiratory effort and clear to auscultation bilaterally AUSCULTATION: clear to auscultation bilaterally Cardio: COMMON NORMALS: regular rate RATE: regular rate Back/Pelvis: COMMON NORMALS: thoracic and lumbar spine normal to inspection Extremity: LEFT UPPER EXTREMITY: Yes hand & digits (Decreased range of motion PIP joint left middle finger) Neuro: SENSORIUM/ORIENTATION: Yes alert Skin: COMMON NORMALS: turgor normal GENERAL SKIN EXAM: turgor normal Course Vital Signs: Vital signs: Vital Signs Temperature 98.0 F 06/13/23 11:50 Pulse Rate 74 06/13/23 11:50 Respiratory Rate 12 06/13/23 11:50 Blood Pressure 145/87 06/13/23 11:50 Pulse Oximetry 100 06/13/23 11:50 Oxygen Delivery Me thod Room Air 06/13/23 11:50 MDM - Extremity (Nontraumatic) Medical Decision Making Patient comes in today for complaints of injury to the left middle finger. On exam patient has minimal to no swelling. No bruising. Cap refill is intact. Sensation is intact. Differential diagnosis includes but not limited to fracture, subluxation, sprain. No fractures noted to the finger. 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 Reviewed exam with patient with recommendations for treatment follow-up with primary care or marketing graphics specialist. Patient reports understanding and agreed to plan. Lab Data Radiology Impressions Hand X-Ray 06/13/23 13:22 IMPRESSION: No bony injury. All radiology interpretation(s) finalized by discharge Discharge Plan Discharge Patient Disposition: Home Clinical Impression: Finger sprain Qualifiers: Encounter type: initial encounter Finger: middle finger Sprain of finger site: interphalangeal joint Laterality: left Qualified Code(s): S63.633A - Sprain of interphalangeal joint of left middle finger, initial encounter Condition: Stable Prescriptions: No Action rosuvastatin 5 mg tablet 5 mg PO QAM lisinopril 30 mg tablet 30 mg PO QAM insulin aspart U-100 [Novolog FlexPen U-100 Insulin] 100 unit/mL (3 mL) insulin pen 5 unit SUBCUT TID Rx Instructions: sliding scale tamsulosin [Flomax] 0.4 mg capsule 0.4 mg PO DAILY venlafaxine [Effexor XR] 75 mg capsule,extended release 24hr 75 mg PO DAILY Qty: 30 2RF Rx Instructions: To be taken with 150 mg cap for total of 225 mg daily. venlafaxine 150 mg tablet extended release 24hr 150 mg PO DAILY Qty: 30 2RF Rx Instructions: To be taken with 75 mg cap for total of 225 mg daily. buspirone 5 mg tablet 5 mg PO TID Qty: 90 2RF fexofenadine [Aidee Allergy] 180 mg tablet 180 mg PO DAILY PRN (Reason: Allergy Symptoms) guaifenesin [Mucinex] 600 mg tablet extended release 12hr 600 mg PO Q12H PRN (Reason: Allergy Symptoms) levothyroxine 50 mcg tablet 50 mcg PO QAM Discharge Orders: Discharge ED (Routine); Ordered 06/13/23 Ordered By: Josue Nolasco Referrals: Lucian Ng MD [Primary Care Provider] - Discharge Diet: Usual diet Discharge Activity: Increase activity as tolerated Patient Instructions: Finger Sprain (ED) Activity Restrictions/Additional Instructions: Activity as tolerated. Gentle stretching and range of motion exercises of the finger. Wear finger splint for protection of the wound. Follow-up with primary care or marketing graphics specialist for further evaluation and treatment. Coding Level of Care Code ED Electronic Science Teacher for Ty Kilgore
[2023-06-13 14:16] VITALS: BP 145/87; PULSE 74; RESP 12; TEMP 36.7; O2SAT 100
== END 2023-06-13 14:17 | disposition home or self-care (01) ==
PROVIDERS: Emergency Provider Nurse Practitioner Family; PCP Family Medicine
DX: S63.633A Sprain of interphalangeal joint of left middle finger, initial encounter (principal); Z79.4 Long term (current) use of insulin; I10 Essential (primary) hypertension; E11.9 Type 2 diabetes mellitus without complications; X58.XXXA Exposure to other specified factors, initial encounter
CPT/HCPCS: 73130; 99283

== ENCOUNTER 2023-06-17 13:24 | Outpatient (CLI) | payer MEDICARE, SELFPAY ==
--- NOTE | 2023-06-17 13:38 | XR_ITS ---
WS: [id number] KUB, AP view, 06/17/2023 Clinical Data: NEPHROLITHIASIS Comparison: KUB, 07/21/2022 Findings: No abnormal intraabdominal masses or calcifications are seen. There is no dilatated small bowel or ev idence of obstruction. The calcification overlying the interpolar left kidney is not visualized on this exam. Impression: Negative KUB.
== END 2023-06-17 13:25 | disposition home or self-care (01) ==
LOC: RAD 13:27
PROVIDERS: PCP Family Medicine; Visit Provider Urology
DX: N20.0 Calculus of kidney (principal)
CPT/HCPCS: 74018

== ENCOUNTER 2024-03-13 08:50 | Emergency (ER) | payer MEDICARE, SELFPAY ==
--- NOTE | 2024-03-13 08:53 | XRR_ITS ---
PROCEDURE INFORMATION: Exam: XR Left Knee Exam date and time: 03/13/2024 9:23 AM Age: 63 years old Clinical indication: Pain; Knee; Left TECHNIQUE: Imaging protocol: Radiologic exam of the left knee. Views: 3 views. COMPARISON: No relevant prior studies available. FINDINGS: Bones/joints: The medial joint space is well maintained. The lateral joint space is well maintained. No fracture identified. Soft tissues: No knee joint effusion is present. XR/XR knee LT 3V* [id number] IMPRESSION: No evidence of acute fracture or dislocation. No significant degenerative changes identified.
[2024-03-13 08:56] VITALS: BP 126/79; PULSE 60; RESP 18; TEMP 36.3; O2SAT 100; BMI 31.7
--- NOTE | 2024-03-13 10:04 | W.ED.EXTPRO ---
HPI - Extremity Problem General: Chief complaint: Extremity Injury, Lower Stated complaint: Left knee pain Time Seen by Provider: 03/13/24 08:53 Source: patient and family Mode of arrival: ambulatory Limitations: no limitations History of Present Illness: Patient is a nice 63-year-old male presents to ED today with a complaint of left knee pain over the past 4 days or so. He has noticed swelling. He has not noticed any overlying erythema. No known injury or trauma. 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 He has no other complaints at this time. Vitals are stable upon arrival. MD Complaint: joint swelling and joint pain Onset (ago): day(s) Pain Consistency: constant Location: left and knee Quality: aching Radiation: none Relieving factors: nothing Exacerbating factors: range of motion and weight bearing Associated symptoms: Reports no associated symptoms; Deny chest pain or fever(s) Related Data Home Medications Medication Instructions Recorded Confirmed lisinopril 30 mg tablet 30 mg PO QAM 01/23/21 02/21/24 rosuvastatin 5 mg tablet 5 mg PO QAM 01/23/21 02/21/24 levothyroxine 50 mcg tablet 50 mcg PO QAM 11/05/21 02/21/24 fexofenadine 180 mg tablet 180 mg PO DAILY PRN Allergy 11/18/21 02/21/24 (Aidee Allergy) Symptoms guaifenesin 600 mg tablet, 600 mg PO Q12H PRN Allergy Symptoms 11/18/21 02/21/24 extended release 12 hr (Mucinex) insulin aspart U-100 100 unit/mL 5 unit SUBCUT TID 12/26/21 02/21/24 (3 mL) subcutaneous pen (Novolog FlexPen U-100 Insulin aspart) tamsulosin 0.4 mg capsule (Flomax) 0.4 mg PO DAILY 12/26/21 02/21/24 tirzepatide 2.5 mg/0.5 mL mg SUBCUT .Weekly 11/24/23 02/21/24 subcutaneous pen injector (Maggiro) metformin 500 mg tablet,extended 1,000 mg PO DAILY 03/13/24 03/13/24 release 24 hr Previous Rx's Medication Instructions Recorded buspirone 5 mg tablet 5 mg PO TID #90 tabs 02/21/24 venlafaxine 150 mg tablet,extended 150 mg PO DAILY #30 tabs 02/21/24 release 24 hr venlafaxine 75 mg capsule,extended 75 mg PO DAILY #30 caps 02/21/24 release 24 hr (Effexor XR) diclofenac sodium 50 mg 50 mg PO Q12H PRN pain #20 tabs 03/13/24 tablet,delayed release hydrocodone 5 mg-acetaminophen 325 1 tab PO Q6H PRN pain #12 tabs 03/13/24 mg tablet prednisone 10 mg tablet 10 mg PO DAILY 6 days #20 tabs 03/13/24 Allergies Allergy/AdvReac Type Severity Reaction Status Date / Time ceftriaxone Allergy Unknown ADR-Gastrointestinal Verified 11/24/23 14:53 Upset shellfish derived Allergy ALGY-Anaphy Verified 11/24/23 14:53 laxis Review of Systems Const: Denies: fever(s), chills, body aches, fatigue or malaise Card: Denies: chest pain Resp: Denies: dyspnea Musc: Reports: joint pain (L knee) and joint swelling (L knee); Denies: extremity pain, extremity swelling or joint redness Neuro: Denies: numbness in extremities, weakness in extremities or sensory changes PFSH ED PFSH: Medical History Hypertension Diabetes Major depressive disorder, recurrent, in partial remission Psychiatric care Surgical History History of ear, nose, and throat (ENT) surgery Mucocele Family History Mother , AT AGE 82 Cancer BREAST Father , ATE AGE 67 Diabetes Social History Smoking and tobacco/nicotine status: never used tobacco/nicotine Second hand smoke exposure: No Alcohol intake: former Substance/Drug Use: never Marital status: Current occupational status: disabled Physical Exam Const: COMMON NORMALS: no acute distress, average body habitus, no limitations, healthy appearing, alert and well nourished Extremity: COMMON NORMALS: capillary refill normal, no clubbing, cyanosis or edema, no calf tenderness and no pedal edema GENERAL: Yes normal exam except as noted LEFT LOWER EXTREMITY: Yes knee joint (edema anterior L knee; no popliteal tenderness/swelling) Left knee: Yes ROM (no pain out of proportion; ROM slightly limited due to edema) and Yes neurovascular exam (normal) OTHER: no breaks in skin; no overlying erythema; no concern for DVT Neuro: COMMON NORMALS: moves all extremities, no focal motor deficits and no sensory deficits noted SENSORIUM/ORIENTATION: Yes alert Course Vital Signs: Vital signs: Vital Signs Temperature 97.4 F L 03/13/24 08:56 Pulse Rate 60 03/13/24 08:56 Respiratory Rate 18 03/13/24 08:56 Blood Pressure 126/79 03/13/24 08:56 Pulse Oximetry 100 03/13/24 08:56 Oxygen Delivery Me thod Room Air 03/13/24 08:56 MDM - Extremity (Nontraumatic) Medical Decision Making Based on history and physical examination, symptoms most likely related to a knee bursitis. Will be placed on NSAIDs and steroids. Requesting pain meds to take at night. Recommend SAUL wrap, crutches, elevation, and follow up with PCP in 1-2 weeks. Return precautions given. Medical Records I reviewed the patient's medical records. All radiology interpretation(s) finalized by discharge Discharge Plan Discharge Patient Disposition: Home Clinical Impression: Bursitis of left knee Qualifiers: Knee bursitis location: unspecified Qualified Code(s): M70.52 - Other bursitis of knee, left knee Condition: Stable Prescriptions: New prednisone 10 mg tablet 10 mg PO DAILY 6 Days Qty: 20 0RF Rx Instructions: Take 5 tabs on day 1-2, 4 tabs on day 3, 3 tabs on day 4, 2 tabs on day 5, and 1 tab on day 6 hydrocodone-acetaminophen 5-325 mg tablet 1 tab PO Q6H PRN (Reason: pain) Qty: 12 0RF diclofenac sodium 50 mg tablet,delayed release (DR/EC) 50 mg PO Q12H PRN (Reason: pain) Qty: 20 0RF No Action rosuvastatin 5 mg tablet 5 mg PO QAM lisinopril 30 mg tablet 30 mg PO QAM insulin aspart U-100 [Novolog FlexPen U-100 Insulin] 100 unit/mL (3 mL) insulin pen 5 unit SUBCUT TID Rx Instructions: sliding scale tamsulosin [Flomax] 0.4 mg capsule 0.4 mg PO DAILY buspirone 5 mg tablet 5 mg PO TID Qty: 90 11RF venlafaxine [Effexor XR] 75 mg capsule,extended release 24hr 75 mg PO DAILY Qty: 30 11RF Rx Instructions: To be taken with 150 mg cap for total of 225 mg daily. venlafaxine 150 mg tablet extended release 24hr 150 mg PO DAILY Qty: 30 11RF Rx Instructions: To be taken with 75 mg cap for total of 225 mg daily. fexofenadine [Aidee Allergy] 180 mg tablet 180 mg PO DAILY PRN (Reason: Allergy Symptoms) guaifenesin [Mucinex] 600 mg tablet extended release 12hr 600 mg PO Q12H PRN (Reason: Allergy Symptoms) Mounjaro 2.5 mg/0.5 mL pen injector SUBCUT .Weekly levothyroxine 50 mcg tablet 50 mcg PO QAM metformin 500 mg tablet extended release 24 hr 1,000 mg PO DAILY Discharge Orders: Discharge ED (Routine); Ordered 03/13/24 Ordered By: Harriett Shay Referrals: Lucian Ng MD [Primary Care Provider] - Patient Instructions: Knee Bursitis (ED), Opioid Safety, Pain Management Activity Restrictions/Additional Instructions: As we discussed, you need to use your crutches for weightbearing as tolerated. Ice and elevate the extremity and use your Saul wrap for compression. Take your anti-inflammatories and steroids as prescribed. You may take the hydrocodone as needed for severe pain. If pain does not improve over the next 1 to 2 weeks, please follow-up with primary care. You may return to the emergency department for worsening knee pain, redness, warmth, fevers, or any other concerns you may have. I hope you begin to feel better soon. Coding Level of Care Code ED [facility] for Ty Kilgore
[2024-03-13 10:47] VITALS: BP 126/79; PULSE 60; O2SAT 100
[2024-03-13 10:48] VITALS: BP 126/79; PULSE 60; O2SAT 100
== END 2024-03-13 10:51 | disposition home or self-care (01) ==
PROVIDERS: Emergency Provider Physician Assistant; PCP Family Medicine
DX: M70.52 Other bursitis of knee, left knee (principal); Z79.84 Long term (current) use of oral hypoglycemic drugs; E11.9 Type 2 diabetes mellitus without complications; I10 Essential (primary) hypertension
CPT/HCPCS: 73562; 99283

== ENCOUNTER 2024-07-20 11:06 | Emergency (ER) | payer MEDICARE, SELFPAY ==
[2024-07-20 11:20] VITALS: BP 162/85; PULSE 73; RESP 18; TEMP 36.4; O2SAT 99
--- NOTE | 2024-07-20 11:42 | XR_ITS ---
WS: [id number] Right shoulder, 3 views, 07/20/2024 Clinical Data: trauma Comparison: None. Findings: No fractures or dislocations are seen. The AC joint is normal. The adjacent right clavicle, right scapula and ribs are normal. The soft tissues are unremarkable. There is a small calcification adjacent to the greater tuberosity which could indicate calcific bursitis and/or tendinitis. XR/XR shoulder RT min 2V* [id number] Impression: 1. Negative for fracture. 2. Minimal calcific bursitis and/or tendinitis.
--- NOTE | 2024-07-20 11:42 | CT_ITS ---
WS: [id number] CT CERVICAL SPINE HISTORY: trauma TECHNIQUE: Contiguous 2.0 mm axial imaging performed through the entire cervical spine. Sagittal and coronal reformats also performed. All CT scans at [facility] use at least one of these dose optimization techniques: automated exposure control; mA and/or kV adjustment per patient size (includes targeted exams where dose is matched to clinical indication); or iterative reconstruction. DLP: 222.28 mGy.cm COMPARISON: None. LEFT curvature cervical spine. Patient's head is tilted to the RIGHT. Cervical osteophytosis and disc space narrowing. Craniocervical junction is normal. Lateral masses of C1 and C2 are aligned. The odontoid is intact. C2-C3: Bilateral facet arthritis. Severe LEFT foraminal stenosis. C3-C4: Marked osteophytic ridging and bilateral facet arthritis. Moderate to severe central and bilateral foraminal stenosis. C4-C5: Marked osteophytic ridging and bilateral facet arthritis. Mild foraminal narrowing. C5-C6: Osteophytic ridging and bilateral facet joint arthropathy, greater on the RIGHT. Severe RIGHT foraminal stenosis. C6-C7: Mild osteophytic ridging. C7-T1: Mild osteophytic ridging. Lung apices are clear. Visualized upper thorax is negative. CT/CT cervical spin wo con* [id number] IMPRESSION: 1. No acute cervical spine fracture. 2. Multiple levels of central and foraminal stenosis and facet arthropathy. 3. LEFT curvature cervical spine.
--- NOTE | 2024-07-20 11:42 | CT_ITS ---
WS: [id number] CT THORACIC SPINE HISTORY: trauma TECHNIQUE: Contiguous 2.5 mm axial images are reviewed to thoracic spine. Images are reformatted in sagittal and coronal planes. All CT scans at [facility] use at least one of these dose optimization techniques: automated exposure control; mA and/or kV adjustment per patient size (includes targeted exams where dose is matched to clinical indication); or iterative reconstruction. DLP: 910.76 mGy.cm COMPARISON: None available. Normal posterior thoracic alignment. Minimal disc space narrowing and small hypertrophic endplate osteophytes. Very slight anterior wedging of T7. No acute fracture lines. No high-grade central or foraminal stenosis throughout the thoracic spine. Facet joint arthropathy relatively resulting in mild foraminal stenosis beginning at T4-5. The visualized lungs and paraspinal soft tissues are normal. No rib fractures are identified. CT/CT thoracic spin wo con* [id number] IMPRESSION: 1. No acute thoracic spine fracture. Very slight anterior wedging of T7 appear s remote. 2. Paraspinal soft tissues are normal.
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
[2024-07-20 11:46] VITALS: BP 149/83; PULSE 77; RESP 16; O2SAT 96
[2024-07-20 13:05] VITALS: BP 131/66; PULSE 83; RESP 16; O2SAT 97
== END 2024-07-20 13:07 | disposition home or self-care (01) ==
PROVIDERS: Emergency Provider Student in an Organized Health Care Education/Training Program; PCP Family Medicine
DX: S40.011A Contusion of right shoulder, initial encounter (principal); S47.1XXA Crushing injury of right shoulder and upper arm, initial encounter; S20.221A Contusion of right back wall of thorax, initial encounter; S16.1XXA Strain of muscle, fascia and tendon at neck level, initial encounter; Z79.4 Long term (current) use of insulin; Z79.84 Long term (current) use of oral hypoglycemic drugs; I10 Essential (primary) hypertension; E11.9 Type 2 diabetes mellitus without complications; W20.8XXA Other cause of strike by thrown, projected or falling object, initial encounter
CPT/HCPCS: 72125; 72128; 73030; 99284

== ENCOUNTER 2024-09-26 10:19 | Outpatient (CLI) | payer MEDICARE, SELFPAY ==
--- NOTE | 2024-09-26 10:29 | XR_ITS ---
WS: [id number] KUB: SUPINE FILM OF THE ABDOMEN SUBMITTED HISTORY: NEPHROLITHIASIS COMPARISON: 06/17/2023 Normal appearance to the bowel gas pattern, soft tissues and osseous structures. Outline the kidneys is normal. No renal or ureteral calcifications identified radiographically. Mild narrowing of the hip joints. XR/XR KUB [id number] IMPRESSION: No identifiable renal or ureteral calcifications.
== END 2024-09-26 10:20 | disposition home or self-care (01) ==
PROVIDERS: PCP Family Medicine; Visit Provider Urology
DX: N20.0 Calculus of kidney (principal); M16.0 Bilateral primary osteoarthritis of hip
CPT/HCPCS: 74018

== ENCOUNTER 2024-12-30 20:45 | Emergency (ER) | payer MEDICARE, SELFPAY ==
--- OUTSIDE RECORDS SUMMARY | 2003-05-02 19:00 | XMS_ITS | Continuity of Care Document ---
Author Name [facility] Address [address] [place] [address] Organization [facility] Care Team Providers Care Flavor Room Worker Name Role Phone [facility] Unavailable Unavailable Problems Problem Status Onset Date Problem Type Date of Resolution Comments Source Depressive disorder (disorder) Active Condition Hyperlipidemia (disorder) Active Condition Hypertensive disorder, systemic arterial (disorder) Active Condition Hypothyroidism (disorder) Active Condition Obesity (disorder) Active Condition Diabetes mellitus type 2 (disorder) Active Condition Acute posthemorrhagic anemia (disorder) Diagnosis Type II diabetes mellitus without complication (disorder) Diagnosis Hyperlipidemia (disorder) Diagnosis Hypothyroidism (disorder) Diagnosis Depressive disorder (disorder) Diagnosis Essential hypertension (disorder) Diagnosis Long-term current use of oral hypoglycemic medication Diagnosis Obesity (disorder) Diagnosis Obese class II (finding) Diagnosis History of - infectious disease (context-dependent category) Diagnosis Calculus of kidney Active Diagnosis Allergies, Adverse Reactions, Alerts Substance Category Reaction Severity Reaction type Status Date Reported Comments Source shellfish Assertion Food allergy Active [facility]
--- OUTSIDE RECORDS SUMMARY | 2023-07-16 04:26 | XMS_ITS | Continuity of Care Document ---
Author Name [facility] Organization [facility] Care Team Providers Care Gas Operator Name Role Phone [facility] Unavailable Unavailable Problems Combined list of problems from Department of [facility] and [facility] facilities. It does not include entries that were removed or entered in error. Problem Status Onset Date Problem Type Date of Resolution Comments Source Calculus of kidney Active Condition [facility] Chronic post-traumatic stress disorder Active Condition [facility] Chronic sinusitis Active Condition [facility] Decreased testosterone level Active Condition Aug 14 023 Entered By: KELY ANAND Comment: denies prostate and any other cancer [facility] History of Lyme disease Active Condition Jul 16, 2022 Entered By: KELY ANAND Comment: non va PCP has treated and managing everything. No referrals no additional medications needed. [facility] Hyperlipidemia Active Condition [facility] Hypertension Active Condition [facility] Hypothyroid Active Condition [facility] Type 2 diabetes mellitus Active Condition [facility] Medications Combined list of outpatient medications from Department [facility] and [facility] facilities.Medications provided include 1) outpatient medications from the last 15 months, and 2) patient-reported medications. Medication Details Route Status Patient Instructions Prescription Expires Prescription Number Last Dispense Date Ordering Provider Order Date Order Qty Source BUSPIRONE HCL 10MG TAB TAKE ONE-HALF TABLET BY MOUTH THREE TIMES A DAY ORAL ACTIVE TAMIKO ANAND 2022 [facility] INSULIN ASPART (NOVOLOG) FLEXPEN INJ INJECT UNDER THE SKIN THREE TIMES A DAY BEFORE MEALS SUBCUT ANEOUS ACTIVE TAMIKO ANAND 2022 [facility] LEVOTHYROXI NE NA 50MCG TAB (SYNTHROID) TAKE ONE TABLET BY MOUTH EVERY MORNING BEFORE A MEAL ORAL ACTIVE TAMIKO ANAND 2022 [facility] LISINOPRIL 20MG TAB TAKE 1.5 TABLETS BY MOUTH ONCE A DAY ORAL ACTIVE TAMIKO ANAND 2022 [facility] METFORMIN HCL 500MG 24HR TAB,SA TAKE TWO TABLETS BY MOUTH ONCE A DAY ORAL ACTIVE TAMIKO ANAND 2022 [facility] ROSUVASTATI N CA 10MG TAB TAKE ONE-HALF TABLET BY MOUTH EVERY EVENING ORAL ACTIVE TAMIKO ANAND R 2022 [facility] TAMSULOSIN HCL 0.4MG CAP TAKE 1 CAPSULE BY MOUTH EVERY EVENING ORAL ACTIVE TAMKIO ANAND R 2022 [facility] VENLAFAXINE HCL 75MG 24HR CAP,SA TAKE 3 CAPSULES BY MOUTH ONCE A DAY ORAL ACTIVE TAMIKO ANAND R 2022 [facility] Immunizations Combined list of available immunizations from the Department of Defense and [facility] facilities. 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 Order Name Results Value Reference Range Date Interpretation Specimen Comments Source TESTOST ERONE, TOTAL (PB-MA) TESTOSTERONE [MASS/VOLUME] IN SERUM OR PLASMA 243.0 ng/dL 221.0 - 871.0 2022 Specimen Type: SERUM No comment entered. Ordering Provider: TAMIKO ANAND Report Released Date/Time : Apr 27, 2023 12:00 PM Reporting Lab: [facility] [address] [facility] [phone] Performin g Lab: [facility] [address] [facility] [id number] [facility] Encounters Combined list of: 1) Encounters from Department of Veterans [facility] facilities going backup to the last 18 months, not all [place] inpatient encounters are included; 2) Encounters from the Department of [facility] facilities going backup to 280 months. Location Location Details Encounter Type Encounter Number Reason For Visit Attending Provider ADM Date DC Date Status Disposition Source [facility] Outpatient Encounter [id number] 07/13 [facility] Outpatient Encounter [id number] 07/13 [facility] Outpatient Encounter [id number] 07/15 [facility] N Social History Combined list of available smoking, tobacco, and other social history from Department of Defense and Veterans Affairs facilities. Social History Type Response Date Comment Sour e Tobacco smoking status WYIS PR-TOBACCO NEVER USED 07/16/2022 [facility]
--- OUTSIDE RECORDS SUMMARY | 2024-12-30 20:53 | XMS_ITS | Patient Health Record ---
Author Organization [facility] Address [address] 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 Name Role Phone Lucian Ng MD Primary Care Provider Susy santoyo BAKER SHANNEN Unavailable [phone] Allergies Allergen (clinical drug ingredient) Drug/Non Drug Allergy documented on EMR Reaction Allergy Type Onset Date Status Information temporarily unavailable Shellfish-derived Products Unknown Drug Allergy Active Results Component Value Reference Range Notes Urinalysis, Routine Reviewed date:10/05/2024 02:23:55 PM Interpretation: Performing Lab: Notes/Report: Urine-Color yellow Appearance clear Glucose - Bilirubin - Ketones - Specific Timpson 1.005 Occult Blood - pH 6.0 Urine Protein - Urobilinogen,Semi-Qn - Nitrite, Urine - WBC Esterase - Reason For Referral No Information Medications Medication SIG (Take, Route, Frequency, Duration) Notes Start Date End Date Status Tirzepatide 2.5 MG/0.5ML as directed Subcutaneous Active busPIRone HCl 30 MG 1 tablet Orally Twic e a day Active Venlafaxine HCl 75 MG 1 tablet with food Orally Once a day Active Venlafaxine HCl 100 MG 1 tablet with luz marina d Orally Once a day Active Rosuvastatin Calcium 5 MG 1 tablet Orall y Once a day Active Lisinopril 30 MG 1 tablet Orally Once a day Active Tamsulosin HCl 0.4 MG 1 capsule Orally O nce a day Active Levothyroxine Sodium 50 MCG 1 tablet in the morning on an empty stomach Orally Once a day Active metFORMIN HCl 500 MG 1 tablet with a nghia l Orally Once a day Active Social History Tobacco Use: Social History Observation Description Date Details (start date - stop date) Never Smoker NA - NA Tobacco Control (Standard) Question Answer Notes Tobacco use: Nonsmoker Problems Problem Type SNOMED Code ICD Code Onset Dates Problem Status W/U Status Risk Notes Problem Information temporarily unavailable Nephrolithiasis (N20.0) Active confirmed Problem Information temporarily unavailable History of elevated PSA (Z87.898) Active confirmed Problem Information temporarily unavailable Incomplete bladder emptying (R33.9) Active confirmed Problem Information temporarily unavailable History of nephrolithiasis (Z87.442) Active confirmed Problem Information temporarily unavailable BPH loc w urin obs/LUTS (N40.1) Active confirmed Vital Signs Height-cm 172.72 cm 10/05/2024 Weight-kg 91.63 kg 10/05/2024 Height 68 in 10/05/2024 Weight 202 lbs 10/05/2024 BMI 30.71 kg/m2 10/05/2024 Procedures Procedure Date Ordered Date Performed Result Body Sit e Bladder Scan 10/05/2024 N/A Encounters Encounter Location Date Provider Diagnosis [facility] [address] [place] [address] 10/05/2024 SHANNEN BAKER BPH loc w urin obs/L UTS N40.1 ; History of nephrolithiasis Z87.442 ; Incomplete bladder emptying R33.9 and History of elevated PSA Z87.898 [facility] [address] [place] [address] 05/23/2024 SHANNEN BAKER Nephrolithiasis N20. 0 Assessments Encounter Date Diagnosis (ICD Code) Assessment Notes Treatment Notes Treatment Clinical Notes Section Notes 05/23/2024 Nephrolithiasis (ICD-10 - N20.0) 10/05/2024 History of nephrolithiasis (ICD-10 - Z87.442) 64-year-old male status post staghorn calculi surgery with stable course, currently experiencing mild to moderate LUTS managed with Flomax. Recent imaging shows no stone recurrence. Problems addressed today: 1. History of staghorn calculi (N20.0) 2. BPH with LUTS (N40.1) 3. Nocturia (R35.1) 4. Post-surgical follow-up (Z48.815) 10/05/2024 BPH loc w urin obs/LUTS (ICD-10 - N40.1) 64-year-old male status post staghorn calculi surgery with stable course, currently experiencing mild to moderate LUTS managed with Flomax. Recent imaging shows no stone recurrence. Problems addressed today: 1. History of staghorn calculi (N20.0) 2. BPH with LUTS (N40.1) 3. Nocturia (R35.1) 4. Post-surgical follow-up (Z48.644) 10/05/2024 Incomplete bladder emptying (ICD-10 - R33.9) 64-year-old male status post staghorn calculi surgery with stable course, currently experiencing mild to moderate LUTS managed with Flomax. Recent imaging shows no stone recurrence. Problems addressed today: 1. History of staghorn calculi (N20.0) 2. BPH with LUTS (N40.1) 3. Nocturia (R35.1) 4. Post-surgical follow-up (Z48.707) 10/05/2024 History of elevated PSA (ICD-10 - Z87.898) 64-year-old male status post staghorn calculi surgery with stable course, currently experiencing mild to moderate LUTS managed with Flomax. Recent imaging shows no stone recurrence. Problems addressed today: 1. History of staghorn calculi (N20.0) 2. BPH with LUTS (N40.1) 3. Nocturia (R35.1) 4. Post-surgical follow-up (Z48.588) 10/05/2024 Other #Urolithiasis Continue annual monitoring KUB scheduled for next follow-up #BPH/LUTS May increase Flomax to 0.4mg BID if symptoms worsen Current dose appears to be providing adequate relief #Preventive Care Due for colonoscopy screening - advised to schedule PCP following PSA levels #Follow-up Return in 1 year with KUB May see VIET Rodriguez for next visit Your kidney X-ray shows no new stones, which is excellent news. Continue taking your Flomax as prescribed. If your urinary symptoms get worse, we can increase your dose to twice daily - please call if needed. It's important to schedule a colonoscopy since it has been 10 years since your last one. This screening test helps detect colon cancer early. Continue your great work with weight management and blood sugar control. Return to see us in one year. Please get an X-ray (KUB) before your visit. Call sooner if you develop severe urinary symptoms or concerns for kidney stones. 64-year-old male status post staghorn calculi surgery with stable course, currently experiencing mild to moderate LUTS managed with Flomax. Recent imaging shows no stone recurrence. Problems addressed today: 1. History of staghorn calculi (N20.0) 2. BPH with LUTS (N40.1) 3. Nocturia (R35.1) 4. Post-surgical follow-up (Z48.815) Plan Of Treatment Pending Test Test Name Order Date KUB, X-Ray: Abdomen, Kidney, Urete r, bladder 02/25/2023 [id number] KUB, X-Ray: Abdomen, Kidney, Urete r, bladder 05/23/2024 Bladder Scan 10/05/2024 Next Appt Details Provider Name:Karthik Menendez, 10/11/2025 01:20:00 PM, [address] [place], [address], Insurance Providers Payer Name Payer Address Payer Phone Subscriber Number Group Number Insured Name Patient Relationship to Insured Coverage Start Date Coverage End Date [place] [address] IJEOMA KULKARNI [id number] [employer] [place] Self - patient is the insured Medical (General) History Medical History History ICD Code bronchitis hives/eczema hemorrhoids hypertension back trouble diabetes migraine headaches recurrent bladder infections arthritis kidney stones Surgical History Surgery Date(Month/Year) kidney surgery 12/09/2021 Hospitalization History Reason Date(Month/Year) kidney
--- OUTSIDE RECORDS SUMMARY | 2024-12-30 20:53 | XMS_ITS | Clinical Summary ---
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 Active lisinopriL (PRINIVIL) 20 mg tablet Take 20 mg by mouth daily. Active rosuvastatin (CRESTOR) 10 mg tablet Take 10 mg by mouth daily at bedtime. Active metFORMIN (GLUCOPHAGE) 500 mg tablet Take 500 mg by mouth daily with breakfast. Active tamsulosin (FLOMAX) 0.4 mg capsule Take 0.4 mg by mouth daily. Active busPIRone (BUSPAR) 10 mg tablet Take 10 mg by mouth 3 times daily. Active venlafaxine 75 mg Extended Release 24 hour tablet Take 75 mg by mouth daily with breakfast. Active Social History Tobacco Use Types Packs/Day Years Used Date Smoking Tobacco: Never Assessed Alcohol Use Standard Drinks/Week Comments Yes 0 (1 standard drink = 0.6 oz pur e alcohol) Holidays Sex and Gender Information Value Date Recorded Sex Assigned at Not on file Legal Sex Male 6:51 AM CDT Gender Identity Not on file Sexual Orientation Not on file Plan of Treatment Health Maintenance Due Date Last Done Comments DTAP/TDAP/TD VACCINES (1 - Tdap) 1980 COLORECTAL SCREENING 2006 Colorectal Cancer Screening 2006 FIT-DNA Q 3 years 2006 FIT/FOBT Q 1 year 2006 Flex Sig/CT Colonography Q 5 years 2006 ZOSTER VACCINE (1 of 2) 2011 INFLUENZA VACCINE (#1) 2024 RSV VACCINE (60+ or ) (1 - 1-dose 75+ series) 2036 Insurance [facility] [employer]
[2024-12-30 20:58] VITALS: BP 138/78; PULSE 66; RESP 16; TEMP 36.6; O2SAT 100; BMI 31.1
[2024-12-30 22:30] VITALS: PULSE 64; O2SAT 99
[2024-12-30] MEDS: tetracaine 0.5% Op Soln 4 mL Btl 1 DROP EYE-LEFT (23:01)
[2024-12-31 00:33] VITALS: RESP 17
[2024-12-31] MEDS: oxyCODONE-APAP 5-325 mg Tablet 2 TAB PO (00:33)
--- NOTE | 2024-12-31 00:45 | W.ED.EYEPROB ---
HPI - Eye Problem General: Chief complaint: Eye Problems Stated complaint: Object in Left Eye Time Seen by Provider: 12/30/24 21:49 History of Present Illness: Patient is a 64-year-old male who presents with left eye pain and discomfort that began yesterday after getting something in his eye while using a rail grinder. He reports that he has been flushing his eye since the incident occurred. The pain became worse and unbearable tonight after taking a nap. He initially felt like the foreign body was inside the upper eyelid. He reports slight blurriness in the affected eye with excessive tearing. He denies any blood or purulent discharge from the eye. No prior problems with the left eye are reported. Related Data Home Medications ?Medication ?Instructions ?Recorded ?Confirmed lisinopril 30 mg tablet 30 mg PO QAM 01/23/21 10/11/24 rosuvastatin 5 mg tablet 5 mg PO QAM 01/23/21 10/11/24 levothyroxine 50 mcg tablet 50 mcg PO QAM 11/05/21 10/11/24 fexofenadine 180 mg tablet 180 mg PO DAILY PRN Allergy 11/18/21 10/11/24 (Aidee Allergy) Symptoms guaifenesin 600 mg tablet, 600 mg PO Q12H PRN Allergy Symptoms 11/18/21 10/11/24 extended release 12 hr (Mucinex) insulin aspart U-100 100 unit/mL 5 unit SUBCUT TID 12/26/21 10/11/24 (3 mL) subcutaneous pen (Novolog FlexPen U-100 Insulin aspart) tamsulosin 0.4 mg capsule (Flomax) 0.4 mg PO BEDTIME 12/26/21 10/11/24 tirzepatide 2.5 mg/0.5 mL 2.5 mg SUBCUT .Weekly 11/24/23 10/11/24 subcutaneous pen injector (Mounjaro) metformin 500 mg tablet,extended 1,000 mg PO DAILY 03/13/24 10/11/24 release 24 hr Previous Rx's ?Medication ?Instructions ?Recorded buspirone 5 mg tablet 5 mg PO TID #90 tabs 02/21/24 venlafaxine 150 mg tablet,extended 150 mg PO DAILY #30 tabs 02/21/24 release 24 hr venlafaxine 75 mg capsule,extended 75 mg PO DAILY #30 caps 02/21/24 release 24 hr (Effexor XR) ciprofloxacin HCl 0.3 % eye drops 1 drp ophthalmic (eye) Q4H 5 days 12/30/24 #5 mL ketorolac 0.5 % eye drops 1 drp ophthalmic (eye) Q6H PRN 12/30/24 itching #5 mL Allergies Allergy/AdvReac Type Severity Reaction Status Date / Time ceftriaxone Allergy Unknown ADR-Gastrointestinal Verified 10/11/24 13:28 Upset shellfish derived Allergy ALGY-Anaphy Verified 10/11/24 13:28 laxis PFSH ED PFSH: Medical History Hypertension Diabetes Major depressive disorder, recurrent, in partial remission Psychiatric care Surgical History History of ear, nose, and throat (ENT) surgery Mucocele Family History Mother , AT AGE 82 Cancer BREAST Father , ATE AGE 67 Diabetes Social History Smoking and tobacco/nicotine status: never used tobacco/nicotine Second hand smoke exposure: No Alcohol intake: former Substance/Drug Use: never Marital status: Current occupational status: disabled Physical Exam Const: COMMON NORMALS: no acute distress GENERAL APPEARANCE: cooperative; not ill appearing HENMT: COMMON NORMALS: normocephalic and atraumatic HEAD & SCALP: normocephalic and atraumatic Eye: COMMON NORMALS: Equal, round and reactive pupils present ALIGNMENT: Yes alignment normal EYELID: eyelids normal CONJUNCTIVA: Yes conjunctival abnormal positive left conjunctival injection; without discharge CORNEA: Yes fluorescein used (No foreign body. Abrasion present 11 o'clock position) PUPIL: Yes Equal, round and reactive pupils present Chest: CHEST: Yes Symmetrical chest wall rise Resp: COMMON NORMALS: normal respiratory effort Cardio: COMMON NORMALS: regular rate and regular rhythm RATE: regular rate RHYTHM: regular rhythm Neuro: DOUG COMA SCALE: document GCS findings Doug coma scale eye opening: Spontaneous Doug coma scale verbal response: Orientated Hawthorne coma scale motor response: Obey commands Doug coma scale total score: 15 Skin: COMMON NORMALS: no rashes or lesions noted GENERAL SKIN EXAM: no rashes or lesions noted Course Vital Signs: Vital signs: Vital Signs Temperature 97.8 F 12/30/24 20:58 Pulse Rate 64 12/30/24 22:30 Respiratory Rate 17 12/31/24 00:33 Blood Pressure 138/78 12/30/24 20:58 Pulse Oximetry 99 12/30/24 22:30 Oxygen Delivery Me thod Room Air 12/30/24 22:30 MDM - Eye Problem Medical Decision Making No foreign body present on fluorescein examination or direct light examination. Funduscopic exam was normal. Patient experience significant relief with tetracaine. No rust ring seen. He will be prescribed antibiotics, ketorolac drops. Outpatient follow-up with ophthalmology No radiology studies performed this visit Discharge Plan Discharge Patient Disposition: Home Clinical Impression: Corneal abrasion Condition: Stable Prescriptions: New ciprofloxacin HCl 0.3 % drops 1 drp ophthalmic (eye) Q4H 5 Days Qty: 5 0RF Rx Instructions: administer while awake ketorolac 0.5 % drops 1 drp ophthalmic (eye) Q6H PRN (Reason: itching) Qty: 5 0RF No Action rosuvastatin 5 mg tablet 5 mg PO QAM lisinopril 30 mg tablet 30 mg PO QAM insulin aspart U-100 [Novolog FlexPen U-100 Insulin] 100 unit/mL (3 mL) insulin pen 5 unit SUBCUT TID Rx Instructions: sliding scale tamsulosin [Flomax] 0.4 mg capsule 0.4 mg PO BEDTIME buspirone 5 mg tablet 5 mg PO TID Qty: 90 11RF venlafaxine [Effexor XR] 75 mg capsule,extended release 24hr 75 mg PO DAILY Qty: 30 11RF Rx Instructions: To be taken with 150 mg cap for total of 225 mg daily. venlafaxine 150 mg tablet extended release 24hr 150 mg PO DAILY Qty: 30 11RF Rx Instructions: To be taken with 75 mg cap for total of 225 mg daily. fexofenadine [Aidee Allergy] 180 mg tablet 180 mg PO DAILY PRN (Reason: Allergy Symptoms) guaifenesin [Mucinex] 600 mg tablet extended release 12hr 600 mg PO Q12H PRN (Reason: Allergy Symptoms) Mounjaro 2.5 mg/0.5 mL pen injector 2.5 mg SUBCUT .Weekly levothyroxine 50 mcg tablet 50 mcg PO QAM metformin 500 mg tablet extended release 24 hr 1,000 mg PO DAILY Discharge Orders: Discharge ED (Routine); Ordered 12/30/24 Ordered By: Dale Joseph Referrals: [facility] [Outside] - 1-3 days Lucian Ng MD [Primary Care Provider, [facility]] Patient Instructions: Corneal Abrasion (ED), Opioid Safety, Pain Management, Patient Portal & Yamileth Instructions Activity Restrictions/Additional Instructions: Eyedrops as directed. Return for worsening vision, worsening pain despite treatment, other concerning symptoms. Call the eye clinic on Wednesday morning for a follow-up appointment. You should be seen to ensure your cornea is healing appropriately. Print Language: Portuguese Coding Level of Care Code ED Speech Therapist Early Intervention for Ty Kilgore
== END 2024-12-31 00:36 | disposition home or self-care (01) ==
PROVIDERS: Emergency Provider Emergency Medicine; PCP Family Medicine
DX: S05.02XA Injury of conjunctiva and corneal abrasion without foreign body, left eye, initial encounter (principal); Z79.4 Long term (current) use of insulin; Z79.84 Long term (current) use of oral hypoglycemic drugs; X58.XXXA Exposure to other specified factors, initial encounter
CPT/HCPCS: 99283; J9999